=== PATIENT | female | born 1990 | race Hispanic/Latino ===

== ENCOUNTER 2018-05-16 18:05 | Emergency (ER) | payer OTHER ==
[~2018-05-16] VITALS: Ht 157.5 cm; Wt 82.1 kg
--- OUTSIDE RECORDS SUMMARY | 2018-05-16 18:07 | XMS REPORT | Continuity of Care Document ---
Author Author [facility] Interface Address Unknown Phone Unavailable Problems Problem Status Onset Date Classification Date Reported Comments Source RT UPPER PAIN Active 05/11/2018 [facility] ARM PAIN Active 10/21/2017 [facility] Discharge Diagnosis: Blunt head injury 06/22/2017 06/25/2017 [facility] Discharge Diagnosis: Ankle strain 06/22/2017 06/25/2017 [facility] FALL Active 06/22/2017 [facility] SOB Active 12/23/2015 [facility] SYNCOPE Active 12/23/2015 [facility] INDUCTION Active 12/24/2014 [facility] ABDOMINAL PAIN Active 12/22/2014 [facility] CHILDBIRTH Active 12/20/2014 [facility] LOF Active 11/24/2014 [facility] NUMBNESS Active 11/21/2014 [facility] CONTRACTIONS Active 10/13/2014 [facility] Resolved 10/13/2014 Problem 10/24/2017 [facility] Anemia Resolved Problem 10/24/2017 [facility] Anxiety Resolved Problem 10/24/[address] [facility] THREAT LABOR NEC-UNSPEC Active [facility] SYNCOPE AND COLLAPSE Active [facility] Medications Medication Details Route Status Patient Instructions Ordering Provider Order Date Source Acetaminophen 325 MG / Hydrocodone Bitartrate 5 MG Oral Tablet [Maiden 5/325] 1 tab, Route: PO, Drug Form: TAB, Dosing Weight 77.273, kg, ONCE, STAT, Start date: 06/22/17 5:12:00 JUNIOR DATABASE ADMINISTRATOR, Stop date: 06/22/17 5:12:00 JUNIOR DATABASE ADMINISTRATOR Inactive 06/22/2017 [facility] Docusate 100 mg, 1 cap, Route: PO, Drug form: CAP, BID, Dosing Weight 84.545, kg, Start date: 12/24/15 9:00:00 CDT, Duration: 30 day, Stop date: 01/22/16 17:00:00 CDTNotes: (Same as: Colace) (Do Not Crush) Inactive 12/24/2015 [facility] Sodium Chloride 0.154 MEQ/ML Injectable Solution 1,000 mL, 1,000 ml/hr, Infuse Over: 1 hr, Route: IV, 1,000, Drug form: INJ, ONCE, Priority: STAT, Dosing Weight 84.545 kg, Start date: 12/24/15 3:58:00 CDT, Duration: 1 doses or times, Stop date: 12/24/15 3:58:00 CDT Inactive 12/24/2015 [facility] Ondansetron 4 mg, 2 mL, Route: IVP, Drug form: INJ, Q6H, Dosing Weight 84.545, kg, PRN Nausea & Vomiting, Start date: 12/24/15 3:57:00 CDT, Duration: 30 day, Stop date: 01/23/16 3:56:00 CDTNotes: (Same as: John) MEDICATION WASTE Product Size: 4 mg Product Wasted: ___ mg Inactive 12/24/2015 [facility] Acetaminophen 650 mg, 2 tab, Route: PO, Drug form: TAB, Q4H, Dosing Weight 84.545, kg, PRN Pain 1-3/Temp > 100.4 F, Start date: 12/24/15 3:57:00 CDT, Duration: 30 day, Stop date: 01/23/16 3:56:00 CDTNotes: Do not exceed 4 gm/day. (Same as: Tylenol) Inactive 12/24/2015 [facility] Sodium Chloride 0.154 MEQ/ML Injectable Solution 1,000 mL, Rate: 125 ml/hr, Infuse over: 8 hr, Route: IV, Dosing Weight 84.545 kg, Total Volume: 1,000, Start date: 12/24/15 3:57:00 CDT, Duration: 30 day, Stop date: 01/23/16 3:56:00 CDT Inactive 12/24/2015 [facility] Saline Flush 0.9% 10 ml, Route: IVP, Drug Form: INJ, Dosing Weight 84.545, kg, PRN, PRN Line Flush, Start date: 12/24/15 3:57:00 CDT, Duration: 30 day, Stop date: 01/23/16 3:56:00 CDTNotes: Same as: BD Posiflush Sterile Inactive 12/24/2015 [facility] Iohexol 85 mL, Route: IVP, Drug Form: SOLN, Dosing Weight 84.545, kg, ONCALL, STAT, Start date: 12/24/15 2:12:00 CDT, Duration: 1 doses or times, Dose=2.2ml/kg, Max uthb=170tm -- "To be infused by Radiology Staff ONLY" Inactive 12/24/2015 [facility] Potassium Chloride 1.33 MEQ/ML Oral Solution 40 mEq, 30 mL, Route: PO, Drug form: LIQ, ONCE, Dosing Weight 84.545, kg, Priority: STAT, Start date: 12/24/15 1:46:00 CDT, Stop date: 12/24/15 1:46:00 CDTNotes: (Same as: Potassium Chloride) Inactive 12/24/2015 [facility] Sodium Chloride 0.154 MEQ/ML Injectable Solution 1,000 mL, 1,000 ml/hr, Infuse Over: 1 hr, Route: IV, 1,000, Drug form: INJ, ONCE, Priority: STAT, Dosing Weight 84.545 kg, Start date: 12/24/15 0:51:00 CDT, Duration: 1 doses or times, Stop date: 12/24/15 0:51:00 CDT Inactive 12/24/2015 [facility] tramadol hydrochloride 50 MG Oral Tablet 50 mg=1 tab, PO, Q6H, PRN Pain, X 10 day, # 24 tab, 0 Refill(s) Active 12/27/2014 [facility] Docusate Sodium 100 MG Oral Capsule [Colace] 100 mg=1 cap, PO, BID, PRN Constipation, # 20 cap, 0 Refill(s) Active 12/27/2014 [facility] ibuprofen 600 mg oral tablet 600 mg=1 tab, PO, Q6H, PRN Pain, take with food, # 30 tab, 0 Refill(s)Special Instructions: take with food Active 12/27/2014 [facility] Multivitamins oral tablet 1 tab, Route: PO, Drug Form: TAB, Dosing Weight 84.545, kg, Daily, Start date: 12/26/14 9:00:00, Duration: 30 day, Stop date: 01/24/15 9:00:00 No Longer Active 12/26/2014 [facility] M-M-R II 0.5 mL, Route: SUB-Q, Drug Form: PDR/INJ, Dosing Weight 84.545, kg, ONCALL, Give only if patient rubella non-immune, Start date: 12/25/14 15:00:00, Duration: 1 doses or timesNotes: (Same as: M-M-R II) (dazdgnt-iclna-zyvcebo virus vaccine 0.5 ml INJ VL) GIVE PRIOR TO DISCHARGE No Longer Active 12/25/2014 [facility] Acetaminophen 650 mg, 2 tab, Route: PO, Drug form: TAB, Q4H, Dosing Weight 84.545, kg, PRN Headache 1-3, Start date: 12/25/14 14:06:00, Duration: 30 day, Stop date: 01/24/15 14:05:00Notes: Do not exceed 4 gm/day. (Same as: Tylenol) No Longer Active 12/25/2014 [facility] Acetaminophen 325 MG / Hydrocodone Bitartrate 7.5 MG Oral Tablet 1 tab, Route: PO, Drug Form: TAB, Dosing Weight 84.545, kg, Q4H, PRN Pain Score 7-10, Start date: 12/25/14 14:06:00, Duration: 30 day, Stop date: 01/24/15 14:05:00Notes: Same as Maiden 325-7.5mg Do not exceed 4gm/day of acetaminophen. No Longer Active 12/25/2014 [facility] Acetaminophen 325 MG / Hydrocodone Bitartrate 5 MG Oral Tablet 1 tab, Route: PO, Drug Form: TAB, Dosing Weight 84.545, kg, Q4H, PRN Pain Score 4-6, Start date: 12/25/14 14:06:00, Duration: 30 day, Stop date: 01/24/15 14:05:00Notes: (Same as: Maiden 325/5) Do not exceed 4gm/day of acetaminophen. No Longer Active 12/25/2014 [facility] Ibuprofen 800 mg, 1 tab, Route: PO, Drug form: TAB, Q8H, Dosing Weight 84.545, kg, PRN Pain Score 6-10, Start date: 12/25/14 14:06:00, Duration: 30 day, Stop date: 01/24/15 14:05:00Notes: (Same as: Motrin) "Do Not Crush" Take with food. No Longer Active 12/25/2014 [facility] Bisacodyl 10 mg, 1 supp, Route: ND, Drug form: SUPP, PRN, Dosing Weight 84.545, kg, PRN Other -See Comment, Start date: 12/25/14 14:06:00, Duration: 30 day, Stop date: 01/24/15 14:05:00Notes: (Same As: Dulcola x, Bisco-Lax) No Longer Active 12/25/2014 [facility] lanolin topical 1 appl, Route: TOP, PRN, Drug form: OINT, PRN Other -See Comment, Start date: 12/25/14 14:06:00, Duration: 30 day, Stop date: 01/24/15 14:05:00Notes: (Same as:Lanolin) No Longer Active 12/25/2014 [facility] zolpidem 5 mg, 1 tab, Route: PO, Drug form: TAB, Bedtime, Dosing Weight 84.545, kg, PRN Sleep, Start date: 12/25/14 14:06:00, Duration: 30 day, Stop date: 01/24/15 14:05:00Notes: (Same As: Ambien) No Longer Active 12/25/2014 [facility] Docusate 100 mg, 1 cap, Route: PO, Drug form: CAP, BID, Dosing Weight 84.545, kg, PRN Constipation, Start date: 12/25/14 14:06:00, Duration: 30 day, Stop date: 01/24/15 14:05:00Notes: (Same as: Colace) (Do Not Crush) No Longer Active 12/25/2014 [facility] Ondansetron 4 mg, 2 mL, Route: IVP, Drug form: INJ, Q8H, Dosing Weight 84.545, kg, PRN Nausea & Vomiting, Start date: 12/25/14 14:06:00, Duration: 30 day, Stop date: 01/24/15 14:05:00Notes: (Same as: Zofran) MEDICATION WASTE Product Size: 4 mg Product Wasted: ___ mg Inactive 12/25/2014 [facility] Benzocaine 200 MG/ML Topical [place] [Dermoplast] 1 spray, Route: TOP, PRN, Drug form: SPRY, PRN Irritation, Start date: 12/25/14 14:06:00, Duration: 30 day, Stop date: 01/24/15 14:05:00Notes: (Same As: Dermoplast) FOR EXTERNAL USE ONLY No Longer Active 12/25/2014 [facility] Methylergonovine 0.2 mg, 1 mL, Route: IM, Drug form: INJ, PRN, Dosing Weight 84.545, kg, PRN Other -See Comment, Start date: 12/25/14 14:06:00, Duration: 30 day, Stop date: 01/24/15 14:05:00Notes: (Same as:Methergine) No Longer Active 12/25/2014 [facility] Lactated Ringers IV 1,000 mL 1,000 mL, Rate: 100 ml/hr, Infuse over: 10 hr, Route: IV, Dosing Weight 84.545 kg, Total Volume: 1,000, Start date: 12/25/14 14:06:00, Duration: 30 day, Stop date: 01/24/15 14:05:00 No Longer Active 12/25/2014 [facility] Oxytocin 0.06 UNT/ML Injectable Solution 30 unit, 500 mL, Rate: 42 ml/hr, Infuse over: 11.9 hr, Dosing Weight 84.545, kg, Route: IV, Total Volume: 500 mL, Start date: 12/25/14 14:06:00, Duration: 2 doses or times, Stop date: 12/26/14 13:53:00, Replace Every: 11.9 hrNotes: (Same as: OXYTOCIN- D5LR) Inactive 12/25/2014 [facility] Penicillin G 2,500,000 unit, 50 mL, Route: IVPB, Drug form: INJ, ABXQ4H, Dosing Weight 84.545, kg, Start date: 12/24/14 23:00:00 No Longer Active 12/25/2014 [facility] Penicillin G Potassium 7821433 UNT/ML Injectable Solution 5,000,000 unit, Route: IVPB, Drug form: PDR/INJ, ONCALL, Dosing Weight 84.545, kg, Start date: 12/24/14 19:00:00, Duration: 1 doses or timesNotes: (Same as: Pfizerpen) MEDICATION WASTE Product Size: 5,000,000 unit Product Wasted: ___ unit No Longer Active 12/25/2014 [facility] Carboprost 250 microgram, 1 mL, Route: IM, Drug form: INJ, ONCALL, Dosing Weight 84.545, kg, Start date: 12/24/14 19:00:00, Duration: 30 day, Stop date: 01/23/15 18:59:00Notes: (Same As: Hemabate) No Longer Active 12/25/2014 [facility] Citric Acid / sodium citrate 30 mL, Route: PO, Drug Form: SOLN, Dosing Weight 84.545, kg, ONCALL, Start date: 12/24/14 19:00:00, Duration: 30 day, Stop date: 01/23/15 18:59:00Notes: (Same As: Bicitra, Cytra-2) Sodium citrate-citric acid (500-334 mg/5 mL): 1 mL contains sodium 1 mEq/mL and bicarbonate 1 mEq/mL No Longer Active 12/25/2014 [facility] Misoprostol 1,000 microgram, 5 tab, Route: ND, Drug form: TAB, ONCALL, Dosing Weight 84.545, kg, Start date: 12/24/14 19:00:00, Duration: 1 doses or timesNotes: (Same as:Cytotec) Take with food No Longer Active 12/25/2014 [facility] Methylergonovine 0.2 mg, 1 mL, Route: IM, Drug form: INJ, ONCALL, Dosing Weight 84.545, kg, Start date: 12/24/14 19:00:00, Duration: 30 day, Stop date: 01/23/15 18:59:00Notes: (Same as:Methergine) No Longer Active 12/25/2014 [facility] Famotidine 20 mg, 2 mL, Route: IVP, Drug form: INJ, ONCALL, Dosing Weight 84.545, kg, Start date: 12/24/14 19:00:00, Duration: 30 day, Stop date: 01/23/15 18:59:00Notes: (Same as: Pepcid) Can be dilute in 5-10cc NS IVP: Slow IV push over at least 2 minutes. No Longer Active 12/25/2014 [facility] Terbutaline 0.25 mg, 0.25 mL, Route: SUB-Q, Drug form: INJ, PRN, Dosing Weight 84.545, kg, PRN Other -See Comment, Start date: 12/24/14 18:55:00, Duration: 1 doses or times, Stop date: Limited # of timesNotes: DO NOT USE IN [place] AREA (Same As: Brethine) No Longer Active 12/24/2014 [facility] lidocaine 1% 20 mL, Route: PERCUT, Drug Form: INJ, Dosing Weight 84.545, kg, PRN, PRN Other -See Comment, Start date: 12/24/14 18:55:00, Duration: 1 doses or times, Stop date: Limited # of timesNotes: (Same as: X ylocaine) No Longer Active 12/24/2014 [facility] Oxytocin 0.06 UNT/ML Injectable Solution 30 unit, 500 mL, Rate: Titrate, Dosing Weight 84.545, kg, Route: IV, Total Volume: 500 mL, Start date: 12/24/14 18:55:00, Duration: 2 day, Stop date: 12/26/14 18:54:00, Replace Every: 24 hrNotes: (Same as: OXYTOCIN-D5LR) No Longer Active 12/24/2014 [facility] lidocaine 1% injectable solution 0.25 mL, Route: INTRADERM, Drug Form: INJ, Dosing Weight 84.545, kg, PRN, PRN Other -See Comment, Start date: 12/24/14 18:55:00, Duration: 30 day, Stop date: 01/23/15 18:54:00Notes: Preservative free. (Same as: Xylocaine MPF) No Longer Active 12/24/2014 [facility] Calcium Chloride 0.0014 MEQ/ML / Potassium Chloride 0.004 MEQ/ML / Sodium Chloride 0.103 MEQ/ML / Sodium Lactate 0.028 MEQ/ML Injectable Solution 1,000 mL, 1,000 ml/hr, Infuse Over: 1 hr, Route: IV, 1,000, Drug form: INJ, ONCE, Dosing Weight 84.545 kg, Start date: 12/24/14 18:55:00, Stop date: 12/24/14 18:55:00, Bolus for regional anesthesia per unit protocol No Longer Active 12/24/2014 [facility] Ondansetron 4 mg, 2 mL, Route: IVP, Drug form: INJ, Q8H, Dosing Weight 84.545, kg, PRN Nausea & Vomiting, Start date: 12/24/14 18:55:00, Duration: 30 day, Stop date: 01/23/15 18:54:00Notes: (Same as: John) MEDICATION WASTE Product Size: 4 mg Product Wasted: ___ mg No Longer Active 12/24/2014 [facility] Butorphanol 2 mg, 1 mL, Route: IVP, Drug form: INJ, Q2H, Dosing Weight 84.545, kg, PRN Pain Score 6-10, Start date: 12/24/14 18:55:00, Duration: 30 day, Stop date: 01/23/15 18:54:00Notes: (Same As: Karin) ME DICATION WASTE Product Size: 2 mg Product Wasted: ___ mg No Longer Active 12/24/2014 [facility] Lactated Ringers IV 1,000 mL 1,000 mL, Rate: 125 ml/hr, Infuse over: 8 hr, Route: IV, Dosing Weight 84.545 kg, Total Volume: 1,000, Start date: 12/24/14 18:55:00, Duration: 30 day, Stop date: 01/23/15 18:54:00 No Longer Active 12/24/2014 [facility] ferrous sulfate 325 MG Oral Tablet 325 mg=1 tab, PO, TID, 0 Refill(s) Active 11/25/2014 [facility] Esomeprazole 40 MG Enteric Coated Capsule [Nexium] 40 mg=1 cap, PO, Daily, 0 Refill(s) Active 11/25/2014 [facility] 1 oral capsule 1 cap, PO, Daily, 0 Refill(s) Active 11/25/2014 [facility] Iron-150 oral tablet 1 tab, PO, Daily, 0 Refill(s) Inactive 11/25/2014 [facility] multivitamin, 1 tab, Route: PO, Drug Form: TAB, Dosing Weight 79.545, kg, Daily, Start date: 11/25/14 9:00:00, Duration: 30 day, Stop date: 12/24/14 9:00:00 Inactive 11/25/2014 [facility] Famotidine 20 MG Oral Tablet [Pepcid] 20 mg, 1 tab, Route: PO, Drug form: TAB, Q12H, Dosing Weight 79.545, kg, Start date: 11/25/14 9:00:00, Duration: 30 day, Stop date: 12/24/14 21:00:00Notes: (Same as: Pepcid) Inactive 11/25/2014 [facility] Ofirmev 1,000 mg, 100 mL, Route: IV, Drug form: INJ, Q6H, Dosing Weight 79.545, kg, PRN Pain Score 1-3, for > or=50 kg, Start date: 11/25/14 0:38:00, Duration: 30 day, Stop date: 12/25/14 0:37:00Notes: Infuse o chilango 15 minutes Do not exceed 4gm/day of acetaminophen MEDICATION WASTE Product Size: 1000 mg Product Wasted: ___ mg Inactive 11/25/2014 [facility] Ambien 5 mg, 1 tab, Route: PO, Drug form: TAB, Bedtime, Dosing Weight 79.545, kg, PRN Insomnia, Start date: 11/25/14 0:37:00, Duration: 30 day, Stop date: 12/25/14 0:36:00Notes: (Same As: Ambien) Inactive 11/25/2014 [facility] Ofirmev 1,000 mg, 100 mL, Route: IV, Drug form: INJ, ONCE, Dosing Weight 79.545, kg, PRN Pain Score 1-3, for > or=50 kg, Start date: 11/24/14 21:20:00Notes: Infuse over 15 minutes Do not exceed 4gm/day of aceta minophen MEDICATION WASTE Product Size: 1000 mg Product Wasted: ___ mg Inactive 11/25/2014 [facility] Calcium Chloride 0.0014 MEQ/ML / Potassium Chloride 0.004 MEQ/ML / Sodium Chloride 0.103 MEQ/ML / Sodium Lactate 0.028 MEQ/ML Injectable Solution 1,000 mL, Rate: 125 ml/hr, Infuse over: 8 hr, Route: IV, Dosing Weight 79.545 kg, Total Volume: 1,000, Start date: 11/24/14 21:18:00, Duration: 30 day, Stop date: 12/24/14 21:17:00 No Longer Active 11/25/2014 [facility] Saline Flush 0.9% 10 ml, Route: IVP, Drug Form: INJ, Dosing Weight 79.545, kg, PRN, PRN Line Flush, Start date: 11/24/14 21:16:00, Duration: 30 day, Stop date: 12/24/14 21:15:00Notes: (Same as: BD Posiflush) No Longer Active 11/25/2014 [facility] Allergies, Adverse Reactions, Alerts Substance Category Reaction Severity Reaction type Status Date Reported Comments Source Immunizations Immunization Date Given Site Status Last Updated Comments Source diphtheria/pertussis, acel/tetanus adult 12/27/2014 Left deltoid completed [facility] Results Order Name Results Value Reference Range Date Interpretation Comments Source Ext Upper Venous Doppler Unilat US Ext Upper Venous Doppler Unilat US Addendum: The findings were discussed with ER nurse Savage on 05/11/2018 at 1520 hours.. PROCEDURE: Unilateral right upper extremity venous ultrasound. INDICATION: Right arm pain, erythema and edema. COMPARISON: None. TECHNIQUE: Sonographic evaluation of the upper extremity veins was performed using high resolution B-mode imaging, pulse and color Doppler imaging. FINDINGS: The internal jugular, subclavian, axillary, brachial, radial and ulnar veins are patent with normal compressibility and Doppler flow. Echogenic thrombus is identified within the right arm basilic vein without compressibility or significant Doppler flow. Right arm cephalic vein demonstrates normal compressibility and Doppler flow. IMPRESSION: 1. No deep venous thrombosis. 2. Superficial venous thrombus within the right arm basilic vein. SL: [id number] 05/11/2018 - - Read by: Rey Gill MD Dictated Date/time: 05/11/18 16:37 Electronically Signed by: Rey Gill MD 05/11/18 16:38 FINAL REPORT - - Read by: Rey Gill MD Dictated Date/time: 05/11/18 15:08 Electronically Signed by: Rey Gill MD 05/11/18 15:12 FINAL REPORT [facility] Brain wo contrast CT Brain wo contrast CT Patient Name: FIONA MORE : 1990; Age: 27 years Female MR: [id number] Study: Brain wo contrast CT 06/22/2017 5:11 AM JUNIOR DATABASE ADMINISTRATOR Clinical Indication: CT dose DLP 858.84 mGy-cm - blunt trauma. COMPARISON: None TECHNIQUE: CT images were obtained from the foramen magnum to the vertex without the use of intravenous contrast on a multidetector CT. Coronal and sagittal reconstructions were obtained. FINDINGS: BRAIN PARENCHYMA: There are normal courtney-white interfaces, sulci and gyri. There is no mass effect or midline shift. There is no extra-axial fluid collection, intraventricular or intraparenchymal hemorrhage. The sella and pineal regions are normal. The skull base, cerebellum and brainstem are normal. VENTRICLES: The ventricles are normal in size and configuration. The basilar cisterns are normal. ORBITS, MASTOIDS AND PARANASAL SINUSES: The visualized orbits are normal. The paranasal sinuses are normal. The mastoid air cells are clear. SKULL: There are no osseous abnormalities. If there is further concern for intracranial pathology or acute stroke, MRI of the brain may be performed for complete assessment. IMPRESSION: Normal noncontrast head CT. No mass, hemorrhage or subacute stroke. SL: [id number] 06/22/2017 - - Read by: Gil Calderón MD Dictated Date/time: 06/22/17 07:01 Electronically Signed by: Gil Calderón MD 06/22/17 07:03 FINAL REPORT [facility] Ankle 2 views DX Ankle 2 views DX Right ankle, 2 views dated 06/22/2017. HISTORY: Right ankle pain. AP and lateral views of the right ankle demonstrate no evidence of acute fracture of the distal right tibia or fibula. The talus appears intact and normally located. The ankle mortise appears intact. IMPRESSION: 1. No acute bony abnormalities of the right ankle are detected. SL: [id number] 06/22/2017 - - Read by: Tony Galvez MD Dictated Date/time: 06/22/17 06:28 Electronically Signed by: Tony Galvez MD 06/22/17 06:29 FINAL REPORT [facility] CARDIAC ENZYMES Troponin-I null 0.00 - 0.40 12/24/2015 [facility] ELECTROLYTES AGAP 10.4 meq/L 10.0 - 20.0 12/24/2015 [facility] ELECTROLYTES eGFR 87 mL/min/1.73m2 12/24/2015 Result Comment: The eGFR is calculated using the CKD-EPI formula. In most young, healthy individuals the eGFR will be >90 mL/min/1.73m2. The eGFR declines with age. An eGFR of 60-89 may be normal in some populations, particularly the elderly, for whom the CKD-EPI formula has not been extensively validated. Use of the eGFR is not recommended in the following populations: Individuals with unstable creatinine concentrations, including patients and those with serious co-morbid conditions. Patients with extremes in muscle mass or diet. The data above are obtained from the National Kidney Disease Education Program (NKDEP) which additionally recommends that when the eGFR is used in patients with extremes of body mass index for purposes of drug dosing, the eGFR should be multiplied by the estimated BMI. [facility] ELECTROLYTES BUN 14 mg/dL 7 - 22 12/24/2015 [facility] ELECTROLYTES Sodium Lvl 141 meq/L 135 - 145 12/24/2015 [facility] ELECTROLYTES Glucose Lvl 106 mg/dL 70 - 99 12/24/2015 [facility] ELECTROLYTES Creatinine Lvl 0.92 mg/dL 0.50 - 1.40 12/24/2015 [facility] ELECTROLYTES Calcium Lvl 8.8 mg/dL 8.5 - 10.5 12/24/2015 [facility] ELECTROLYTES Potassium Lvl 3.4 meq/L 3.5 - 5.1 12/24/2015 [facility] ELECTROLYTES CO2 26 meq/L 24 - 32 12/24/2015 [facility] ELECTROLYTES Chloride Lvl 108 meq/L 95 - 109 12/24/2015 [facility] HEMATOLOGY PTT 30.3 s 22.9 - 35.8 12/24/2015 [facility] HEMATOLOGY PT 13.2 s 12.0 - 14.7 12/24/2015 [facility] HEMATOLOGY INR 0.97 0.85 - 1.17 12/24/2015 [facility] HEMATOLOGY WBC 5.3 K/CMM 3.7 - 10.4 12/24/2015 [facility] HEMATOLOGY Hgb 10.0 g/dL 12.0 - 16.0 12/24/2015 [facility] HEMATOLOGY Hct 32.1 % 36.0 - 48.0 12/24/2015 [facility] [facility] HEMATOLOGY MCV 71.9 fL 80.0 - 98.0 12/24/2015 [facility] HEMATOLOGY RBC 4.46 M/CMM 4.20 - 5.40 12/24/2015 [facility] HEMATOLOGY MCH 22.5 pg 27.0 - 31.0 12/24/2015 [facility] HEMATOLOGY MCHC 31.3 g/dL 32.0 - 36.0 12/24/2015 [facility] HEMATOLOGY RDW 21.4 % 11.5 - 14.5 12/24/2015 [facility] HEMATOLOGY Platelet 315 K/CMM 133 - 450 12/24/2015 [facility] HEMATOLOGY MPV 8.6 fL 7.4 - 10.4 12/24/2015 [facility] HEMATOLOGY Microcyte 2+ *ABN* (12/24/15 12:45 AM) None Seen 12/24/2015 [facility] HEMATOLOGY Basophils # 0.1 K/CMM 0.0 - 0.2 12/24/2015 [facility] HEMATOLOGY Eosinophils # 0.3 K/CMM 0.0 - 0.5 12/24/2015 [facility] HEMATOLOGY Anisocyte 1+ *ABN* (12/24/15 12:45 AM) None Seen 12/24/2015 [facility] HEMATOLOGY Lymphocytes # 1.8 K/CMM 1.0 - 5.5 12/24/2015 [facility] HEMATOLOGY Monocytes # 0.5 K/CMM 0.0 - 0.8 12/24/2015 [facility] HEMATOLOGY Segs 50.4 % 45.0 - 75.0 12/24/2015 [facility] HEMATOLOGY Lymphocytes 34.7 % 20.0 - 40.0 12/24/2015 [facility] HEMATOLOGY Basophils 1.3 % 0.0 - 1.0 12/24/2015 [facility] HEMATOLOGY Segs-Bands # 2.7 K/CMM 1.5 - 8.1 12/24/2015 [facility] HEMATOLOGY Monocytes 8.7 % 2.0 - 12.0 12/24/2015 [facility] HEMATOLOGY Eosinophils 4.9 % 0.0 - 4.0 12/24/2015 [facility] IMMUNOLOGY CDC HIV 4th GEN Negative (12/24/15 12:45 AM) Negative 12/24/2015 [facility] Chest Pulmonary Embolism CTA Chest Pulmonary Embolism CTA EXAM: CTA CHEST WITH CONTRAST DATE: 12/24/2015 1:44 AM CDT INDICATION: Chest pain COMPARISON: None. TECHNIQUE: Volumetric CT acquisition of the chest, during pulmonary arterial phase, after intravenous contrast. Axial, sagittal, coronal, and oblique MIP reconstructions are created at the acquisition workstation. IV Contrast: 85 mL of Omnipaque 350 DLP: 657 mGy-cm FINDINGS: Heart and Mediastinum: Cardiothoracic ratio measures 12.4 x 24 cm. Measurements and appearance of the thoracic aorta are normal. At the same level where the ascending aorta measures 2.8 cm the pulmonary trunk measures 2.7 cm. There is no pulmonary embolus. Pleura: No pleural effusion or pneumothorax seen. Lymph Nodes: There is no significant hilar, mediastinal, axillary or internal mammary lymphadenopathy. Lungs: Mosaic attenuation with patchy groundglass haziness seen in the dependent lungs bilaterally, likely related to subsegmental atelectasis, given the dependent distribution. This is less likely due to small airway or small vessel disease. Trachea: Unremarkable Bones and soft tissues: No acute abnormality. IMPRESSION: 1. No acute pulmonary embolus. 2. Mosaic attenuation with patchy groundglass haziness seen in the dependent lungs bilaterally, likely related to subsegmental atelectasis, and unlikely due to small airway or small vessel disease. 12/24/2015 - - Read by: Lj Salazar Dictated Date/time: 12/24/15 02:49 Electronically Signed by: Lj Salazar 12/24/15 02:58 FINAL REPORT [facility] Chest 1view DX Chest 1view DX EXAM: XR CHEST 1 VIEW DATE: 12/24/2015 12:23 AM CDT INDICATION: Dyspnea COMPARISON: None TECHNIQUE: AP chest FINDINGS: No focal consolidation or pleural effusion or pneumothorax is identified. The heart size is normal for technique. No acute bony abnormality is identified. IMPRESSION: No acute cardiopulmonary abnormality. 12/24/2015 - - This report was dictated by a [employer] W[employer] Grower/Fellow. I have personally reviewed the images as well as the Resident's interpretation and agree with the findings. Read by: Adrianna Brink MD Resident: Adrianna Brink MD Dictated Date/time: 12/24/15 00:38 Electronically Signed by: Lj Salazar 12/24/15 01:26 FINAL REPORT [facility] HEMATOLOGY Hgb 10.9 g/dL 12.0 - 16.0 12/26/2014 [facility] HEMATOLOGY Hct 34.1 % 36.0 - 48.0 12/26/2014 [facility] BLOOD BANK RESULTS RBC product Product available (12/25/14 9:30 AM) 12/25/2014 [facility] BLOOD BANK RESULTS Antibody Scrn Negative (12/24/14 8:13 PM) 12/25/2014 [facility] BLOOD BANK RESULTS ABO/Rh O POS 12/25/2014 [facility] CHEM PANEL eGFR 122 mL/min/1.73m2 12/25/2014 1Result Comment: The eGFR is calculated using the CKD-EPI formula. In most young, healthy individuals the eGFR will be >90 mL/min/1.73m2. The eGFR declines with age. An eGFR of 60-89 may be normal in some populations, particularly the elderly, for whom the CKD-EPI formula has not been extensively validated. Use of the eGFR is not recommended in the following populations: Individuals with unstable creatinine concentrations, including patients and those with serious co-morbid conditions. Patients with extremes in muscle mass or diet. The data above are obtained from the National Kidney Disease Education Program (NKDEP) which additionally recommends that when the eGFR is used in patients with extremes of body mass index for purposes of drug dosing, the eGFR should be multiplied by the estimated BMI. [facility] CHEM PANEL Creatinine Lvl 0.7 mg/dL 0.5 - 1.4 12/25/2014 [facility] CHEM PANEL ALT 14 unit/L 0 - 65 12/25/2014 [facility] CHEM PANEL Uric Acid 5.4 mg/dL 2.5 - 7.0 12/25/2014 [facility] CHEM PANEL LDH 207 unit/L 98 - 192 12/25/2014 [facility] CHEM PANEL AST 17 unit/L 0 - 37 12/25/2014 [facility] HEMATOLOGY Segs-Bands # 5.0 K/CMM 1.5 - 8.1 12/25/2014 [facility] HEMATOLOGY Lymphocytes # 1.2 K/CMM 1.0 - 5.5 12/25/2014 [facility] HEMATOLOGY Monocytes # 0.6 K/CMM 0.0 - 0.8 12/25/2014 [facility] HEMATOLOGY Microcyte 1+ *ABN* (12/24/14 8:13 PM) None Seen 12/25/2014 [facility] HEMATOLOGY Monocytes 8.4 % 2.0 - 12.0 12/25/2014 [facility] HEMATOLOGY Basophils 0.4 % 0.0 - 1.0 12/25/2014 [facility] HEMATOLOGY Eosinophils 0.6 % 0.0 - 4.0 12/25/2014 [facility] HEMATOLOGY Segs 72.8 % 45.0 - 75.0 12/25/2014 [facility] HEMATOLOGY Lymphocytes 17.8 % 20.0 - 40.0 12/25/2014 [facility] HEMATOLOGY RBC 3.79 M/CMM 4.20 - 5.40 12/25/2014 [facility] HEMATOLOGY WBC 6.9 K/CMM 3.7 - 10.4 12/25/2014 [facility] HEMATOLOGY Hgb 9.1 g/dL 12.0 - 16.0 12/25/2014 [facility] HEMATOLOGY MCV 74.8 fL 80.0 - 98.0 12/25/2014 [facility] HEMATOLOGY Hct 28.4 % 36.0 - 48.0 12/25/2014 [facility] HEMATOLOGY MCHC 32.2 g/dL 32.0 - 36.0 12/25/2014 [facility] HEMATOLOGY MCH 24.1 pg 27.0 - 31.0 12/25/2014 [facility] HEMATOLOGY Platelet 284 K/CMM 133 - 450 12/25/2014 [facility] HEMATOLOGY RDW 17.9 % 11.5 - 14.5 12/25/2014 [facility] HEMATOLOGY MPV 8.5 fL 7.4 - 10.4 12/25/2014 [facility] IMMUNOLOGY Treponemal Scr Non Reactive *NA* (12/24/14 8:13 PM) Non Reactive 12/25/2014 [facility] IMMUNOLOGY Hep Bs Ag Negative *NA* (12/24/14 8:13 PM) Negative 12/25/2014 [facility] URINE CHEM U Protein 17.2 mg/dL 12/25/2014 3Interpretive Data: No established reference ranges. [facility] URINE CHEM U Prot/Creat 0.1 12/25/2014 [facility] URINE CHEM U Creatinine 205.2 mg/dL 12/25/2014 2Interpretive Data: No established reference ranges. [facility] ELECTROLYTES AGAP 15.4 meq/L 10.0 - 20.0 11/25/2014 [facility] ELECTROLYTES eGFR 128 mL/min/1.73m2 11/25/2014 1Result Comment: The eGFR is calculated using the CKD-EPI formula. In most young, healthy individuals the eGFR will be >90 mL/min/1.73m2. The eGFR declines with age. An eGFR of 60-89 may be normal in some populations, particularly the elderly, for whom the CKD-EPI formula has not been extensively validated. Use of the eGFR is not recommended in the following populations: Individuals with unstable creatinine concentrations, including patients and those with serious co-morbid conditions. Patients with extremes in muscle mass or diet. The data above are obtained from the National Kidney Disease Education Program (NKDEP) which additionally recommends that when the eGFR is used in patients with extremes of body mass index for purposes of drug dosing, the eGFR should be multiplied by the estimated BMI. [facility] ELECTROLYTES Glucose Lvl 88 mg/dL 70 - 99 11/25/2014 2Interpretive Data: Adult reference range values reflect the clinical guidelines of the [place] [employer]. [facility] ELECTROLYTES Creatinine Lvl 0.6 mg/dL 0.5 - 1.4 11/25/2014 [facility] ELECTROLYTES Chloride Lvl 106 meq/L 95 - 109 11/25/2014 [facility] ELECTROLYTES BUN 9 mg/dL 7 - 22 11/25/2014 [facility] ELECTROLYTES CO2 22 meq/L 24 - 32 11/25/2014 [facility] ELECTROLYTES Sodium Lvl 140 meq/L 135 - 145 11/25/2014 [facility] ELECTROLYTES Potassium Lvl 3.4 meq/L 3.5 - 5.1 11/25/2014 [facility] ELECTROLYTES Calcium Lvl 8.4 mg/dL 8.5 - 10.5 11/25/2014 [facility] HEMATOLOGY Monocytes 10.0 % 2.0 - 12.0 11/25/2014 [facility] HEMATOLOGY Segs 70.4 % 45.0 - 75.0 11/25/2014 [facility] HEMATOLOGY Lymphocytes 18.6 % 20.0 - 40.0 11/25/2014 [facility] HEMATOLOGY Eosinophils # 0.1 K/CMM 0.0 - 0.5 11/25/2014 [facility] HEMATOLOGY Monocytes # 1.1 K/CMM 0.0 - 0.8 11/25/2014 [facility] HEMATOLOGY Basophils 0.1 % 0.0 - 1.0 11/25/2014 [facility] HEMATOLOGY Lymphocytes # 2.0 K/CMM 1.0 - 5.5 11/25/2014 [facility] HEMATOLOGY Segs-Bands # 7.5 K/CMM 1.5 - 8.1 11/25/2014 [facility] HEMATOLOGY Microcyte 1+ *ABN* (11/24/14 10:28 PM) None Seen 11/25/2014 [facility] HEMATOLOGY Eosinophils 0.9 % 0.0 - 4.0 11/25/2014 [facility] HEMATOLOGY WBC 10.7 K/CMM 3.7 - 10.4 11/25/2014 [facility] HEMATOLOGY MCHC 32.0 g/dL 32.0 - 36.0 11/25/2014 [facility] HEMATOLOGY Platelet 314 K/CMM 133 - 450 11/25/2014 [facility] HEMATOLOGY RDW 17.6 % 11.5 - 14.5 11/25/2014 [facility] HEMATOLOGY MPV 8.1 fL 7.4 - 10.4 11/25/2014 [facility] HEMATOLOGY Hgb 9.3 g/dL 12.0 - 16.0 11/25/2014 [facility] HEMATOLOGY RBC 3.68 M/CMM 4.20 - 5.40 11/25/2014 [facility] HEMATOLOGY MCV 78.8 fL 80.0 - 98.0 11/25/2014 [facility] HEMATOLOGY Hct 29.0 % 36.0 - 48.0 11/25/2014 [facility] HEMATOLOGY MCH 25.2 pg 27.0 - 31.0 11/25/2014 [facility] URINE AND STOOL UA Bili Negative *NA* (11/24/14 10:28 PM) Negative 11/25/2014 [facility] URINE AND STOOL UA Ketones Negative mg/dL Negative mg/dL 11/25/2014 [facility] URINE AND STOOL UA Protein 20 mg/dL Negative mg/dL 11/25/2014 [facility] URINE AND STOOL UA Glucose Negative mg/dL Negative mg/dL 11/25/2014 [facility] URINE AND STOOL UA Blood Negative (11/24/14 10:28 PM) Negative 11/25/2014 [facility] URINE AND STOOL UA Urobilinogen 2.0 mg/dL 0.1 - 1.0 11/25/2014 [facility] URINE AND STOOL UA WBC 3 /HPF 0 - 5 11/25/2014 [facility] URINE AND STOOL UA Sq Epi Few /LPF Few /LPF 11/25/2014 [facility] URINE AND STOOL UA Nitrite Negative (11/24/14 10:28 PM) Negative 11/25/2014 [facility] URINE AND STOOL UA Leuk Est Negative (11/24/14 10:28 PM) Negative 11/25/2014 [facility] URINE AND STOOL UA pH 6.0 5.0 - 8.0 11/25/2014 [facility] URINE AND STOOL UA Turbidity Clear (11/24/14 10:28 PM) Clear 11/25/2014 [facility] URINE AND STOOL UA Color Yellow *NA* (11/24/14 10:28 PM) Yellow 11/25/2014 [facility] URINE AND STOOL UA Spec Grav 1.019 <=1.030 11/25/2014 [facility] URINE AND STOOL UA Trans Epi 9 /LPF <=0 /LPF 11/25/2014 [facility] URINE AND STOOL UA Mucus Few /LPF None Seen /LPF 11/25/2014 [facility] Vital Signs Vital Sign Value Date Comments Source Respitory Rate 18 10/21/2017 [facility] Height 157.48 cm 10/21/2017 [facility] Heart Rate 81 10/21/2017 [facility] Systolic (mm Hg) 117 10/21/2017 [facility] Diastolic (mm Hg) 73 10/21/2017 [facility] Temperature Oral (F) 98.2 F 10/21/2017 [facility] Weight 77.273 10/21/2017 [facility] BMI Calculated 31.16 10/21/2017 [facility] Heart Rate 60 06/22/2017 [facility] Respitory Rate 14 06/22/2017 [facility] Systolic (mm Hg) 112 06/22/2017 [facility] Diastolic (mm Hg) 71 06/22/2017 [facility] Temperature Oral (F) 97.8 F 06/22/2017 [facility] Heart Rate 68 06/22/2017 [facility] Systolic (mm Hg) 120 06/22/2017 [facility] Diastolic (mm Hg) 68 06/22/2017 [facility] Respitory Rate 16 06/22/2017 [facility] Weight 77.273 06/22/2017 [facility] BMI Calculated 31.16 06/22/2017 [facility] Temperature Oral (F) 97.7 F 06/22/2017 [facility] Heart Rate 77 06/22/2017 [facility] Respitory Rate 18 06/22/2017 [facility] Systolic (mm Hg) 120 06/22/2017 [facility] Diastolic (mm Hg) 77 06/22/2017 [facility] Height 157.48 cm 06/22/2017 [facility] Temperature Oral (F) 96.6 F 12/24/2015 [facility] Systolic (mm Hg) 112 12/24/2015 [facility] Diastolic (mm Hg) 58 12/24/2015 [facility] Heart Rate 57 12/24/2015 [facility] Respitory Rate 17 12/24/2015 [facility] Systolic (mm Hg) 121 12/24/2015 [facility] Diastolic (mm Hg) 74 12/24/2015 [facility] Respitory Rate 16 12/24/2015 [facility] Temperature Oral (F) 96.5 F 12/24/2015 [facility] Respitory Rate 14 12/24/2015 [facility] Systolic (mm Hg) 121 12/24/2015 [facility] Diastolic (mm Hg) 60 12/24/2015 [facility] Temperature Oral (F) 96.5 F 12/24/2015 [facility] Heart Rate 65 12/24/2015 [facility] Heart Rate 62 12/24/2015 [facility] BMI Calculated 33.02 12/24/2015 [facility] Height 160.02 cm 12/24/2015 [facility] Weight 84.545 12/24/2015 [facility] Heart Rate 69 12/27/2014 [facility] Temperature Oral (F) 97.8 F 12/27/2014 [facility] Systolic (mm Hg) 117 12/27/2014 [facility] Diastolic (mm Hg) 72 12/27/2014 [facility] Respitory Rate 17 12/27/2014 [facility] Systolic (mm Hg) 105 12/26/2014 [facility] Diastolic (mm Hg) 62 12/26/2014 [facility] Respitory Rate 18 12/26/2014 [facility] Heart Rate 92 12/26/2014 [facility] Temperature Oral (F) 98.3 F 12/26/2014 [facility] Systolic (mm Hg) 114 12/26/2014 [facility] Diastolic (mm Hg) 71 12/26/2014 [facility] Respitory Rate 18 12/26/2014 [facility] Heart Rate 84 12/26/2014 [facility] Temperature Oral (F) 97.9 F 12/26/2014 [facility] Weight 84.545 12/24/2014 [facility] BMI Calculated 33.02 12/24/2014 [facility] Height 160.02 cm 12/24/2014 [facility] Weight 84.545 12/23/2014 [facility] BMI Calculated 33.02 12/23/2014 [facility] Height 160.02 cm 12/23/2014 [facility] Heart Rate 131 12/23/2014 [facility] Respitory Rate 18 12/23/2014 [facility] Systolic (mm Hg) 108 12/23/2014 [facility] Diastolic (mm Hg) 72 12/23/2014 [facility] Systolic (mm Hg) 121 11/25/2014 [facility] Diastolic (mm Hg) 61 11/25/2014 [facility] Respitory Rate 18 11/25/2014 [facility] Temperature Oral (F) 98 F 11/25/2014 [facility] Heart Rate 93 11/25/2014 [facility] Respitory Rate 18 11/25/2014 [facility] Systolic (mm Hg) 105 11/25/2014 [facility] Diastolic (mm Hg) 51 11/25/2014 [facility] Temperature Oral (F) 97.8 F 11/25/2014 [facility] Respitory Rate 18 11/25/2014 [facility] Systolic (mm Hg) 107 11/25/2014 [facility] Diastolic (mm Hg) 57 11/25/2014 [facility] Temperature Oral (F) 98.1 F 11/25/2014 [facility] Height 157.48 cm 11/25/2014 [facility] BMI Calculated 32.07 11/25/2014 [facility] Weight 79.545 11/25/2014 [facility] Heart Rate 96 11/25/2014 [facility] Systolic (mm Hg) 117 10/13/2014 [facility] Diastolic (mm Hg) 67 10/13/2014 [facility] Height 157.48 cm 10/13/2014 [facility] Weight 78.182 10/13/2014 [facility] BMI Calculated 31.53 10/13/2014 [facility] Height 157.48 cm 10/13/2014 [facility] Weight 78.182 10/13/2014 [facility] BMI Calculated 31.53 10/13/2014 [facility] Encounters Location Location Details Encounter Type Encounter Number Reason For Visit Attending Provider ADM Date DC Date Status Source [facility] OBS Observation Patient [id number] Denisha Vidal 10/13/2014 10/13/2014 [facility] OBS Observation Patient [id number] Melanie Valadez 11/25/2014 11/25/2014 [facility] OBS Observation Patient [id number] Melanie Joyceda 12/23/2014 12/23/2014 [facility] Inpatient [id number] Melanie Valadez 12/24/2014 12/27/2014 [facility] OBS Observation Patient [id number] Yaya Saavedra 12/24/2015 12/24/2015 [facility] Emergency [id number] Lidia Cash 06/22/2017 06/22/2017 [facility] Emergency [id number] Drew Fernandes 10/21/2017 10/22/2017 [facility] Procedures Procedure Code Date Perfomer Comments Source
--- OUTSIDE RECORDS SUMMARY | 2018-05-16 18:07 | XMS REPORT | Summary of Care ---
Author Organization Unknown Address Unknown Phone Unavailable Encounter ENEDINA Hannah(JEAN CLAUDE) [id number] Date(s): 10/13/14 - 10/13/14 [facility] [address] Professional Services provided by [facility] [employer] [facility] [employer] [place] [address]- Discharge Disposition: Home Physician Attending: Denisha Vidal MD Physician Admitting: Denisha Vidal MD Vital Signs Most recent to 1 2 oldest [Reference Range]: Height 157.48 cm 157.48 cm (10/13/14 1:21 PM) (10/13/14 1:08 PM) Blood Pressure 117/67 mmHg [90-140/60-90 mmHg] (10/13/14 1:23 PM) Weight 78.182 kg 78.182 kg (10/13/14 1:21 PM) (10/13/14 1:08 PM) Body Mass Index 31.53 m2 31.53 m2 (10/13/14 1:21 PM) (10/13/14 1:08 PM) Problem List Condition Effective Dates Status Health Status Informant Anxiety(Confirmed) Resolved (Confirmed) 10/13/14 Active (Confirmed) 03/31/09 - 12/22/09 Resolved (Confirmed) 05/01/08 - 01/22/09 Resolved Allergies, Adverse Reactions, Alerts Substance Reaction Severity Status NKDA Active Medications No Known Medications Results No data available for this section Immunizations No data available for this section Procedures No data available for this section Social History Social History Type Response Smoking Status Never smoker; Exposure to Tobacco Smoke None; Cigarette Smoking Last 365 Days No; Reg Smoking Cessation Counseling No Assessment and Plan Extracted from: Title: OB H&P triage Author: Galdino Carrion MD Date: 10/13/14 Impression and Plan A/P: 24 yo, at 28wk3d by LMP c/w 22 wk sono who present to triage c/o painful ctx for 2 wks * Rule out pre-term labor: no ctx on toco, cervix cl/th/hi, will D/C home with pre-term labor precaution. * Rule out SROM: No pooling or valsalva noted. neg nitrazine. sono: MVP 5.2cm. * PNL: wnl per pt. ARNULFO neg, Wet mount neg today. * Br/epidural/BCM: none. * Dispo: D/C home with pre-term labor precaution. * Discussed with Dr. Nolasco. Galdino Carrion MD, PhD, PGY1
--- OUTSIDE RECORDS SUMMARY | 2018-05-16 18:08 | XMS REPORT | Summary of Care ---
Author Organization Unknown Address Unknown Phone Unavailable Encounter HQ Brielle(JEAN CLAUDE) [id number] Date(s): 11/24/14 - 11/25/14 [facility] [address] [place] [address] Professional Services provided by [employer] [place] [address]- Discharge Disposition: Home Physician Attending: Melanie Valadez MD Physician Admitting: Melanie Valadez MD Vital Signs 1 2 3 Most recent to oldest [Reference Range]: 157.48 cm (11/24/14 8:39 PM) Height 98 DegF (11/25/14 10:04 AM) 97.8 DegF (11/25/14 4:30 AM) 98.1 DegF (11/24/14 10:28 PM) Temperature Oral [96.4-99.1 DegF] 121/61 mmHg (11/25/14 10:04 AM) 105/51 mmHg (11/25/14 4:30 AM) 107/57 mmHg (11/24/14 10:28 PM) Blood Pressure [90-140/60-90 mmHg] 18 BRMIN (11/25/14 10:04 AM) 18 BRMIN (11/25/14 4:30 AM) 18 BRMIN (11/24/14 10:28 PM) Respiratory Rate [14-20 BRMIN] 93 bpm (11/25/14 10:04 AM) 96 bpm (11/24/14 8:26 PM) Peripheral Pulse Rate [60-100 bpm] 79.545 kg (11/24/14 8:39 PM) Weight 32.07 m2 (11/24/14 8:39 PM) Body Mass Index Problem List Condition Effective Dates Status Health Status Informant Anxiety(Confirmed) Resolved (Confirmed) 10/13/14 Active (Confirmed) 03/31/09 - 12/22/09 Resolved (Confirmed) 05/01/08 - 01/22/09 Resolved Allergies, Adverse Reactions, Alerts Substance Reaction Severity Status NKDA Active Medications Ambien 5 mg, 1 tab, Route: PO, Drug form: TAB, Bedtime, Dosing Weight 79.545, kg, PRN I nsomnia, Start date: 11/25/14 0:37:00, Duration: 30 day, Stop date: 12/25/14 0:3 6:00 Notes: (Same As: Ambien) Start Date: 11/25/14 Stop Date: 11/25/14 Status: Discontinued iron sulfate (ferrous sulfate) 325 mg oral tablet 325 mg=1 tab, PO, TID, 0 Refill(s) Start Date: 11/25/14 Status: Ordered Iron-150 oral tablet 1 tab, PO, Daily, 0 Refill(s) Start Date: 11/25/14 Stop Date: 11/25/14 Status: Discontinued Lactated Ringers Injection IV 1,000 mL 1,000 mL, Rate: 125 ml/hr, Infuse over: 8 hr, Route: IV, Dosing Weight 79.545 kg , Total Volume: 1,000, Start date: 11/24/14 21:18:00, Duration: 30 day, Stop damaris e: 12/24/14 21:17:00 Start Date: 11/24/14 Stop Date: 11/25/14 Status: Discontinued multivitamin, 1 tab, Route: PO, Drug Form: TAB, Dosing Weight 79.545, kg, Daily, Start date: 0 11/25/14 9:00:00, Duration: 30 day, Stop date: 12/24/14 9:00:00 Start Date: 11/25/14 Stop Date: 11/25/14 Status: Discontinued NexIUM 40 mg oral delayed release capsule 40 mg=1 cap, PO, Daily, 0 Refill(s) Start Date: 11/25/14 Status: Ordered Ofirmev 1,000 mg, 100 mL, Route: IV, Drug form: INJ, ONCE, Dosing Weight 79.545, kg, PRN Pain Score 1-3, for > or=50 kg, Start date: 11/24/14 21:20:00 Notes: Infuse over 15 minutesDo not exceed 4gm/day of acetaminophen MEDICAT ION WASTE Product Size: 1000 mgProduct Wasted: ___ mg Start Date: 11/24/14 Stop Date: 11/24/14 Status: Completed Ofirmev 1,000 mg, 100 mL, Route: IV, Drug form: INJ, Q6H, Dosing Weight 79.545, kg, PRN Pain Score 1-3, for > or=50 kg, Start date: 11/25/14 0:38:00, Duration: 30 day, Stop date: 12/25/14 0:37:00 Notes: Infuse over 15 minutesDo not exceed 4gm/day of acetaminophen MEDICAT ION WASTE Product Size: 1000 mgProduct Wasted: ___ mg Start Date: 11/25/14 Stop Date: 11/25/14 Status: Discontinued Pepcid 20 mg oral tablet 20 mg, 1 tab, Route: PO, Drug form: TAB, Q12H, Dosing Weight 79.545, kg, Start d ate: 11/25/14 9:00:00, Duration: 30 day, Stop date: 12/24/14 21:00:00 Notes: (Same as: Pepcid) Start Date: 11/25/14 Stop Date: 11/25/14 Status: Discontinued 1 oral capsule 1 cap, PO, Daily, 0 Refill(s) Start Date: 11/25/14 Status: Ordered Saline Flush 0.9% 10 ml, Route: IVP, Drug Form: INJ, Dosing Weight 79.545, kg, PRN, PRN Line Flush , Start date: 11/24/14 21:16:00, Duration: 30 day, Stop date: 12/24/14 21:15:00 Notes: (Same as: BD Posiflush) Start Date: 11/24/14 Stop Date: 11/25/14 Status: Discontinued Results ELECTROLYTES Most recent to 1 oldest [Reference Range]: Sodium Lvl [135-145 140 mEq/L mEq/L] (11/24/14 10:28 PM) Potassium Lvl 3.4 mEq/L [3.5-5.1 mEq/L] *LOW* (11/24/14 10:28 PM) Chloride Lvl [95-109 106 mEq/L mEq/L] (11/24/14 10:28 PM) CO2 [24-32 mEq/L] 22 mEq/L *LOW* (11/24/14 10:28 PM) AGAP [10.0-20.0 15.4 mEq/L mEq/L] (11/24/14 10:28 PM) CHEM PANEL Most recent to 1 oldest [Reference Range]: Creatinine Lvl 0.6 mg/dL [0.5-1.4 mg/dL] (11/24/14 10:28 PM) eGFR 128 mL/min/1.73m2 1 *NA* (11/24/14 10:28 PM) BUN [7-22 mg/dL] 9 mg/dL (11/24/14 10:28 PM) Glucose Lvl [70-99 88 mg/dL 2 mg/dL] (11/24/14 10:28 PM) Calcium Lvl 8.4 mg/dL [8.5-10.5 mg/dL] *LOW* (11/24/14 10:28 PM) 1Result Comment: The eGFR is calculated using [...] from the National Kidney Disease Education Program ( NKDEP) which additionally recommends that when the eGFR is used in patients with extremes of body mass index for purposes of drug dosing, the eGFR should be mul tiplied by the estimated BMI. 2Interpretive Data: Adult reference range values reflect the clinical guidelines of the [place] [employer]. URINE AND STOOL Most recent to 1 oldest [Reference Range]: UA Turbidity [Clear] Clear (11/24/14 10:28 PM) UA Color [Yellow] Yellow *NA* (11/24/14 10:28 PM) UA pH [5.0-8.0] 6.0 (11/24/14 10:28 PM) UA Spec Grav 1.019 [<=1.030] (11/24/14 10:28 PM) UA Glucose [Negative Negative mg/dL mg/dL] *NA* (5/29/15 10:28 PM) UA Blood [Negative] Negative (11/24/14 10:28 PM) UA Ketones [Negative Negative mg/dL mg/dL] *NA* (11/24/14 10:28 PM) UA Protein [Negative 20 mg/dL mg/dL] *ABN* (11/24/14 10:28 PM) UA Urobilinogen 2.0 mg/dL [0.1-1.0 mg/dL] *HI* (11/24/14 10:28 PM) UA Bili [Negative] Negative *NA* (11/24/14 10:28 PM) UA Leuk Est Negative [Negative] (11/24/14 10:28 PM) UA Nitrite Negative [Negative] (11/24/14 10:28 PM) UA WBC [0-5 /HPF] 3 /HPF (11/24/14 10:28 PM) UA Sq Epi [Few /LPF] Few /LPF *NA* (11/24/14 10:28 PM) UA Mucus [None Seen Few /LPF /LPF] *NA* (11/24/14 10:28 PM) UA Trans Epi [<=0 9 /LPF /LPF] *HI* (11/24/14 10:28 PM) HEMATOLOGY Most recent to 1 oldest [Reference Range]: WBC [3.7-10.4 K/CMM] 10.7 K/CMM *HI* (11/24/14 10:28 PM) RBC [4.20-5.40 3.68 M/CMM M/CMM] *LOW* (11/24/14 10:28 PM) Hgb [12.0-16.0 g/dL] 9.3 g/dL *LOW* (11/24/14 10:28 PM) Hct [36.0-48.0 %] 29.0 % *LOW* (11/24/14 10:28 PM) MCV [80.0-98.0 fL] 78.8 fL *LOW* (11/24/14 10:28 PM) MCH [27.0-31.0 pg] 25.2 pg *LOW* (11/24/14 10:28 PM) MCHC [32.0-36.0 32.0 g/dL g/dL] (11/24/14 10:28 PM) RDW [11.5-14.5 %] 17.6 % *HI* (11/24/14 10:28 PM) Platelet [133-450 314 K/CMM K/CMM] (11/24/14 10:28 PM) MPV [7.4-10.4 fL] 8.1 fL (11/24/14 10:28 PM) Segs [45.0-75.0 %] 70.4 % (11/24/14 10:28 PM) Lymphocytes 18.6 % [20.0-40.0 %] *LOW* (11/24/14 10:28 PM) Monocytes [2.0-12.0 10.0 % %] (11/24/14 10:28 PM) Eosinophils [0.0-4.0 0.9 % %] (11/24/14 10:28 PM) Basophils [0.0-1.0 0.1 % %] (11/24/14 10:28 PM) Segs-Bands # 7.5 K/CMM [1.5-8.1 K/CMM] (11/24/14 10:28 PM) Lymphocytes # 2.0 K/CMM [1.0-5.5 K/CMM] (11/24/14 10:28 PM) Monocytes # [0.0-0.8 1.1 K/CMM K/CMM] *HI* (11/24/14 10:28 PM) Eosinophils # 0.1 K/CMM [0.0-0.5 K/CMM] (11/24/14 10:28 PM) Microcyte [None 1+ Seen] *ABN* (11/24/14 10:28 PM) Immunizations No data available for this section Procedures No data available for this section Social History Social History Type Response Substance Abuse Use: None. Alcohol Never Smoking Status Former smoker; Exposure to Tobacco Smoke None; Cigarette Smoking Last 365 Days No; Reg Smoking Cessation Counseling No Assessment and Plan No data available for this section
--- OUTSIDE RECORDS SUMMARY | 2018-05-16 18:08 | XMS REPORT ---
Author Author [facility] Address Unknown Phone Unavailable Care Team Providers Care Veterinary Nurse Name Role Phone Unavailable Unavailable Payers Payer Name Policy Type Policy Number Effective Date Expiration Date Problems This patient has no known problems. Allergies, Adverse Reactions, Alerts Allergy Name Allergy Type Status Severity Reaction(s) Onset Date Inactive Date Treating Clinician Comments No Known Drug Allergies DA Active U 2018-05-06 00:00:00 Medications This patient has no known medications.
--- OUTSIDE RECORDS SUMMARY | 2018-05-16 18:08 | XMS REPORT | Summary of Care ---
Author Author [facility] Organization [facility] Address Unknown Phone Unavailable Encounter ENEDINA Hannah(JEAN CLAUDE) [id number] Date(s): 10/21/17 - 10/21/17 [facility] [address] [place] [address]- Discharge Disposition: [facility]TC Left B4 Treatment Cmplt-MSE Cmplt Attending Physician: Drew Fernandes MD Vital Signs Most recent to 1 oldest [Reference Range]: Height 157.48 cm (10/21/17 5:38 PM) Temperature Oral 98.2 DegF [96.4-99.1 DegF] (10/21/17 5:38 PM) Blood Pressure 117/73 mmHg [90-140/60-90 mmHg] (10/21/17 5:38 PM) Respiratory Rate 18 BRMIN [14-20 BRMIN] (10/21/17 5:38 PM) Peripheral Pulse 81 bpm Rate [60-100 bpm] (10/21/17 5:38 PM) Weight 77.273 kg (10/21/17 5:38 PM) Body Mass Index 31.16 m2 (10/21/17 5:38 PM) Problem List Condition Effective Dates Status Health Status Informant Anemia(Confirmed) Resolved Anxiety(Confirmed) Resolved (Confirmed) 10/13/14 - 12/25/14 Resolved (Confirmed) 03/31/09 - 12/22/09 Resolved (Confirmed) 05/01/08 - 01/22/09 Resolved Allergies, Adverse Reactions, Alerts Substance Reaction Severity Status NKDA Active Medications No data available for this section Results No data available for this section Immunizations Given and Recorded Vaccine Date Status Refusal Reason diphtheria/pertussis, acel/tetanus adult 12/27/14 Given Procedures No data available for this section Social History Social History Type Response Substance Abuse Use: None. Sexual Sexually active: Yes. History of sexual abuse: No. Employment/School Highest education level: High school. Alcohol Never Smoking Status Current some day smoker; Type: Cigarettes; Exposure to Tobacco Smoke None; Cigarette Smoking Last 365 Days No; Reg Smoking Cessation Counseling No entered on: 06/22/17 Assessment and Plan No data available for this section
--- OUTSIDE RECORDS SUMMARY | 2018-05-16 18:08 | XMS REPORT | Summary of Care ---
Author Organization Unknown Address Unknown Phone Unavailable Encounter HQ Brielle(JEAN CLAUDE) [id number] Date(s): 12/22/14 - 12/22/14 [facility] [address] Professional Services provided by [facility] [employer] [facility] [place] [address]- Discharge Disposition: Home Physician Attending: Melanie Valadez MD Physician Admitting: Melanie Valadez MD Vital Signs Most recent to 1 oldest [Reference Range]: Height 160.02 cm (12/22/14 10:46 PM) Blood Pressure 108/72 mmHg [90-140/60-90 mmHg] (12/22/14 10:46 PM) Respiratory Rate 18 BRMIN [14-20 BRMIN] (12/22/14 10:46 PM) Peripheral Pulse 131 bpm Rate [60-100 bpm] *HI* (12/22/14 10:46 PM) Weight 84.545 kg (12/22/14 10:46 PM) Body Mass Index 33.02 m2 (12/22/14 10:46 PM) Problem List Condition Effective Dates Status [...] level: High school. Alcohol Never Smoking Status Never smoker; Exposure to Tobacco Smoke None; Cigarette Smoking Last 365 Days No; Reg Smoking Cessation Counseling No Assessment and Plan No data available for this section
--- OUTSIDE RECORDS SUMMARY | 2018-05-16 18:08 | XMS REPORT | Summary of Care ---
Author Organization Unknown Address Unknown Phone Unavailable Encounter [facility](JEAN CLAUDE) [id number] Date(s): 12/24/14 - 12/27/14 [facility] [address] [place] [address] Professional Services provided by [facility] [place] [address]- Discharge Disposition: Home Physician Attending: Melanie Valadez MD Physician Admitting: Melanie Valadez MD Vital Signs 1 2 3 Most recent to oldest [Reference Range]: 160.02 cm (12/24/14 6:45 PM) Height 97.8 DegF (12/27/14 12:00 AM) 98.3 DegF (12/26/14 4:30 PM) 97.9 DegF (12/26/14 10:05 AM) Temperature Oral [96.4-99.1 DegF] 117/72 mmHg (12/27/14 12:00 AM) 105/62 mmHg (12/26/14 4:30 PM) 114/71 mmHg (12/26/14 10:05 AM) Blood Pressure [90-140/60-90 mmHg] 17 BRMIN (12/27/14 12:00 AM) 18 BRMIN (12/26/14 4:30 PM) 18 BRMIN (12/26/14 10:05 AM) Respiratory Rate [14-20 BRMIN] 69 bpm (12/27/14 12:00 AM) 92 bpm (12/26/14 4:30 PM) 84 bpm (12/26/14 10:05 AM) Peripheral Pulse Rate [60-100 bpm] 84.545 kg (12/24/14 6:45 PM) Weight 33.02 m2 (12/24/14 6:45 PM) Body Mass Index Problem List Condition Effective Dates Status Health Status Informant Anxiety(Confirmed) Resolved (Confirmed) 10/13/14 - 12/25/14 Resolved (Confirmed) 03/31/09 - 12/22/09 Resolved (Confirmed) 05/01/08 - 01/22/09 Resolved Allergies, Adverse Reactions, Alerts Substance Reaction Severity Status NKDA Active Medications acetaminophen 650 mg, 2 tab, Route: PO, Drug form: TAB, Q4H, Dosing Weight 84.545, kg, PRN Hea dache 1-3, Start date: 12/25/14 14:06:00, Duration: 30 day, Stop date: 01/24/15 14:05:00 Notes: Do not exceed 4 gm/day. (Same as: Tylenol) Start Date: 12/25/14 Stop Date: 12/27/14 Status: Discontinued acetaminophen-hydrocodone 325 mg-5 mg oral tablet 1 tab, Route: PO, Drug Form: TAB, Dosing Weight 84.545, kg, Q4H, PRN Pain Score 4-6, Start date: 12/25/14 14:06:00, Duration: 30 day, Stop date: 01/24/15 14:05: 00 Notes: (Same as: Ophelia 325/5) Do not exceed 4gm/day of acetaminophen. Start Date: 12/25/14 Stop Date: 12/27/14 Status: Discontinued acetaminophen-hydrocodone 325 mg-7.5 mg oral tablet 1 tab, Route: PO, Drug Form: TAB, Dosing Weight 84.545, kg, Q4H, PRN Pain Score 7-10, Start date: 12/25/14 14:06:00, Duration: 30 day, Stop date: 01/24/15 14:05 :00 Notes: Same as Ophelia 325-7.5mg Do not exceed 4gm/day of acetaminophen. Start Date: 12/25/14 Stop Date: 12/27/14 Status: Discontinued bisacodyl 10 mg, 1 supp, Route: MS, Drug form: SUPP, PRN, Dosing Weight 84.545, kg, PRN Ot her -See Comment, Start date: 12/25/14 14:06:00, Duration: 30 day, Stop date: 14:05:00 Notes: (Same As: Dulcolax, Bisco-Lax) Start Date: 12/25/14 Stop Date: 12/27/14 Status: Discontinued bisacodyl 15 mg, 3 tab, Route: PO, Drug form: ECTAB, Daily, Dosing Weight 84.545, kg, PRN Other -See Comment, Start date: 12/25/14 14:06:00, Duration: 30 day, Stop date: 01/24/15 14:05:00 Notes: (Same As: Dulcolax, Correctol) (Do Not Crush) "Do Not Crush" Start Date: 12/25/14 Stop Date: 12/27/14 Status: Discontinued butorphanol 2 mg, 1 mL, Route: IVP, Drug form: INJ, Q2H, Dosing Weight 84.545, kg, PRN Pain Score 6-10, Start date: 12/24/14 18:55:00, Duration: 30 day, Stop date: 01/23/15 18:54:00 Notes: (Same As: Stadol) MEDICATION WASTE Product Size: 2 mgProduct Was dexter: ___ mg Start Date: 12/24/14 Stop Date: 12/26/14 Status: Discontinued butorphanol 1 mg, 0.5 mL, Route: IVP, Drug form: INJ, Q2H, Dosing Weight 84.545, kg, PRN Karma n Score 1-5, Start date: 12/24/14 18:55:00, Duration: 30 day, Stop date: 5 18:54:00 Notes: (Same As: Stadol) MEDICATION WASTE Product Size: 2 mgProduct Was dexter: ___ mg Start Date: 12/24/14 Stop Date: 12/26/14 Status: Discontinued carboprost 250 microgram, 1 mL, Route: IM, Drug form: INJ, ONCALL, Dosing Weight 84.545, kg , Start date: 12/24/14 19:00:00, Duration: 30 day, Stop date: 01/23/15 18:59:00 Notes: (Same As: Hemabate) Start Date: 12/24/14 Stop Date: 12/26/14 Status: Discontinued citric acid-sodium citrate 30 mL, Route: PO, Drug Form: SOLN, Dosing Weight 84.545, kg, ONCALL, Start date: 12/24/14 19:00:00, Duration: 30 day, Stop date: 01/23/15 18:59:00 Notes: (Same As: Bicitra, Cytra-2) Sodium citrate-citric acid (500-334 mg/5 mL): 1 mL contains sodium 1 mEq/mL and bicarbonate 1 mEq/mL Start Date: 12/24/14 Stop Date: 12/26/14 Status: Discontinued Colace 100 mg oral capsule 100 mg=1 cap, PO, BID, PRN Constipation, # 20 cap, 0 Refill(s) Start Date: 12/27/14 Status: Ordered Dermoplast 20% topical spray 1 spray, Route: TOP, PRN, Drug form: SPRY, PRN Irritation, Start date: 12/25/14 14:06:00, Duration: 30 day, Stop date: 01/24/15 14:05:00 Notes: (Same As: Dermoplast) FOR EXTERNAL USE ONLY Start Date: 12/25/14 Stop Date: 12/27/14 Status: Discontinued docusate 100 mg, 1 cap, Route: PO, Drug form: CAP, BID, Dosing Weight 84.545, kg, PRN Con stipation, Start date: 12/25/14 14:06:00, Duration: 30 day, Stop date: 01/24/15 14:05:00 Notes: (Same as: Colace) (Do Not Crush) Start Date: 12/25/14 Stop Date: 12/27/14 Status: Discontinued famotidine 20 mg, 2 mL, Route: IVP, Drug form: INJ, ONCALL, Dosing Weight 84.545, kg, Start date: 12/24/14 19:00:00, Duration: 30 day, Stop date: 01/23/15 18:59:00 Notes: (Same as: Pepcid)Can be dilute in 5-10cc NS IVP: Slow IV push over at le ast 2 minutes. Start Date: 12/24/14 Stop Date: 12/26/14 Status: Discontinued ibuprofen 800 mg, 1 tab, Route: PO, Drug form: TAB, Q8H, Dosing Weight 84.545, kg, PRN Karma n Score 6-10, Start date: 12/25/14 14:06:00, Duration: 30 day, Stop date: 14:05:00 Notes: (Same as: Motrin)"Do Not Crush" Take with food. Start Date: 12/25/14 Stop Date: 12/27/14 Status: Discontinued ibuprofen 600 mg, 1 tab, Route: PO, Drug form: TAB, Q6H, Dosing Weight 84.545, kg, PRN Karma n Score 1-5, Start date: 12/25/14 14:06:00, Duration: 30 day, Stop date: 5 14:05:00 Notes: (Same as: Motrin)"Do Not Crush" Take with food. Start Date: 12/25/14 Stop Date: 12/27/14 Status: Discontinued ibuprofen 600 mg oral tablet 600 mg=1 tab, PO, Q6H, PRN Pain, take with food, # 30 tab, 0 Refill(s) Special Instructions: take with food Start Date: 12/27/14 Status: Ordered Lactated Ringers (Bolus) IV 1,000 mL, 1,000 ml/hr, Infuse Over: 1 hr, Route: IV, 1,000, Drug form: INJ, ONCE , Dosing Weight 84.545 kg, Start date: 12/24/14 18:55:00, Stop date: 12/24/14 18 :55:00, Bolus for regional anesthesia per unit protocol Start Date: 12/24/14 Stop Date: 12/26/14 Status: Discontinued Lactated Ringers IV 1,000 mL 1,000 mL, Rate: 100 ml/hr, Infuse over: 10 hr, Route: IV, Dosing Weight 84.545 k g, Total Volume: 1,000, Start date: 12/25/14 14:06:00, Duration: 30 day, Stop da te: 01/24/15 14:05:00 Start Date: 12/25/14 Stop Date: 12/27/14 Status: Discontinued Lactated Ringers IV 1,000 mL 1,000 mL, Rate: 125 ml/hr, Infuse over: 8 hr, Route: IV, Dosing Weight 84.545 kg , Total Volume: 1,000, Start date: 12/24/14 18:55:00, Duration: 30 day, Stop damaris e: 01/23/15 18:54:00 Start Date: 12/24/14 Stop Date: 12/26/14 Status: Discontinued lanolin topical 1 appl, Route: TOP, PRN, Drug form: OINT, PRN Other -See Comment, Start date: 14:06:00, Duration: 30 day, Stop date: 01/24/15 14:05:00 Notes: (Same as:Lanolin) Start Date: 12/25/14 Stop Date: 12/27/14 Status: Discontinued lidocaine 1% 20 mL, Route: PERCUT, Drug Form: INJ, Dosing Weight 84.545, kg, PRN, PRN Other - See Comment, Start date: 12/24/14 18:55:00, Duration: 1 doses or times, Stop damaris e: Limited # of times Notes: (Same as: Xylocaine) Start Date: 12/24/14 Stop Date: 12/26/14 Status: Discontinued lidocaine 1% injectable solution 0.25 mL, Route: INTRADERM, Drug Form: INJ, Dosing Weight 84.545, kg, PRN, PRN Ot her -See Comment, Start date: 12/24/14 18:55:00, Duration: 30 day, Stop date: 18:54:00 Notes: Preservative free. (Same as: Xylocaine MPF) Start Date: 12/24/14 Stop Date: 12/26/14 Status: Discontinued M-M-R II 0.5 mL, Route: SUB-Q, Drug Form: PDR/INJ, Dosing Weight 84.545, kg, ONCALL, Give only if patient rubella non-immune, Start date: 12/25/14 15:00:00, Duration: 1 doses or times Notes: (Same as: M-M-R II) (xfcsqps-hsknc-nakyofs virus vaccine 0.5 ml INJ VL) GIVE PRIOR TO DISCHARGE Start Date: 12/25/14 Stop Date: 12/27/14 Status: Discontinued methylergonovine 0.2 mg, 1 mL, Route: IM, Drug form: INJ, PRN, Dosing Weight 84.545, kg, PRN Othe r -See Comment, Start date: 12/25/14 14:06:00, Duration: 30 day, Stop date: 12/28 03/13 14:05:00 Notes: (Same as:Methergine) Start Date: 12/25/14 Stop Date: 12/27/14 Status: Discontinued methylergonovine 0.2 mg, 1 mL, Route: IM, Drug form: INJ, ONCALL, Dosing Weight 84.545, kg, Start date: 12/24/14 19:00:00, Duration: 30 day, Stop date: 01/23/15 18:59:00 Notes: (Same as:Methergine) Start Date: 12/24/14 Stop Date: 12/26/14 Status: Discontinued misoprostol 1,000 microgram, 5 tab, Route: MS, Drug form: TAB, ONCALL, Dosing Weight 84.545, kg, Start date: 12/24/14 19:00:00, Duration: 1 doses or times Notes: (Same as:Cytotec) Take with food Start Date: 12/24/14 Stop Date: 12/26/14 Status: Discontinued ondansetron 4 mg, 2 mL, Route: IVP, Drug form: INJ, Q8H, Dosing Weight 84.545, kg, PRN Nause a & Vomiting, Start date: 12/25/14 14:06:00, Duration: 30 day, Stop date: 01/24/15 14:05:00 Notes: (Same as: John) MEDICATION WASTE Product Size: 4 mgProduct Was dexter: ___ mg Start Date: 12/25/14 Stop Date: 12/25/14 Status: Discontinued ondansetron 4 mg, 2 mL, Route: IVP, Drug form: INJ, Q8H, Dosing Weight 84.545, kg, PRN Nause a & Vomiting, Start date: 12/24/14 18:55:00, Duration: 30 day, Stop date: 01/23/15 18:54:00 Notes: (Same as: John) MEDICATION WASTE Product Size: 4 mgProduct Was dexter: ___ mg Start Date: 12/24/14 Stop Date: 12/26/14 Status: Discontinued oxytocin 30 units in D5LR 500mL (Titrate) IV 30 unit 30 unit, 500 mL, Rate: 42 ml/hr, Infuse over: 11.9 hr, Dosing Weight 84.545, kg, Route: IV, Total Volume: 500 mL, Start date: 12/25/14 14:06:00, Duration: 2 dos es or times, Stop date: 12/26/14 13:53:00, Replace Every: 11.9 hr Notes: (Same as: OXYTOCIN-D5LR) Start Date: 12/25/14 Stop Date: 12/25/14 Status: Discontinued oxytocin 30 units in LR 500 mL 30 unit 30 unit, 500 mL, Rate: Titrate, Dosing Weight 84.545, kg, Route: IV, Total Volum e: 500 mL, Start date: 12/24/14 18:55:00, Duration: 2 day, Stop date: 12/26/14 1 8:54:00, Replace Every: 24 hr Notes: (Same as: OXYTOCIN-D5LR) Start Date: 12/24/14 Stop Date: 12/26/14 Status: Discontinued oxytocin 30 units in LR 500 mL 30 unit 30 unit, 500 mL, Rate: 42 ml/hr, Infuse over: 11.9 hr, Dosing Weight 84.545, kg, Route: IV, Total Volume: 500 mL, Start date: 12/24/14 18:55:00, Duration: 2 day, Stop date: 12/26/14 18:54:00, Replace Every: 11.9 hr Notes: (Same as: OXYTOCIN-D5LR) Start Date: 12/24/14 Stop Date: 12/26/14 Status: Discontinued penicillin G potassium 2,500,000 unit, 50 mL, Route: IVPB, Drug form: INJ, ABXQ4H, Dosing Weight 84.545 , kg, Start date: 12/24/14 23:00:00 Start Date: 12/24/14 Stop Date: 12/26/14 Status: Discontinued penicillin G potassium 5,000,000 units injection 5,000,000 unit, Route: IVPB, Drug form: PDR/INJ, ONCALL, Dosing Weight 84.545, k g, Start date: 12/24/14 19:00:00, Duration: 1 doses or times Notes: (Same as: Pfizerpen) MEDICATION WASTE Product Size: 5,000,000 un itProduct Wasted: ___ unit Start Date: 12/24/14 Stop Date: 12/25/14 Status: Completed Multivitamins oral tablet 1 tab, Route: PO, Drug Form: TAB, Dosing Weight 84.545, kg, Daily, Start date: 0 12/26/14 9:00:00, Duration: 30 day, Stop date: 01/24/15 9:00:00 Start Date: 12/26/14 Stop Date: 12/27/14 Status: Discontinued terbutaline 0.25 mg, 0.25 mL, Route: SUB-Q, Drug form: INJ, PRN, Dosing Weight 84.545, kg, P RN Other -See Comment, Start date: 12/24/14 18:55:00, Duration: 1 doses or times , Stop date: Limited # of times Notes: DO NOT USE IN [employer]NA[employer] [place] AREA(Same As: Domingo) Start Date: 12/24/14 Stop Date: 12/26/14 Status: Discontinued tramadol 50 mg oral tablet 50 mg=1 tab, PO, Q6H, PRN Pain, X 10 day, # 24 tab, 0 Refill(s) Start Date: 12/27/14 Stop Date: 01/06/15 Status: Ordered zolpidem 5 mg, 1 tab, Route: PO, Drug form: TAB, Bedtime, Dosing Weight 84.545, kg, PRN S leep, Start date: 12/25/14 14:06:00, Duration: 30 day, Stop date: 01/24/15 14:05 :00 Notes: (Same As: Jayden) Start Date: 12/25/14 Stop Date: 12/27/14 Status: Discontinued Results BLOOD BANK RESULTS Most recent to 1 2 oldest [Reference Range]: ABO/Rh O POS *Unknown* (12/24/14 8:13 PM) Antibody Scrn Negative (12/24/14 8:13 PM) RBC product Product available (12/25/14 9:30 AM) CHEM PANEL Most recent to 1 2 oldest [Reference Range]: Creatinine Lvl 0.7 mg/dL [0.5-1.4 mg/dL] (12/24/14 8:13 PM) eGFR 122 mL/min/1.73m2 1 *NA* (12/24/14 8:13 PM) Uric Acid [2.5-7.0 5.4 mg/dL mg/dL] (12/24/14 8:13 PM) ALT [0-65 unit/L] 14 unit/L (12/24/14 8:13 PM) AST [0-37 unit/L] 17 unit/L (12/24/14 8:13 PM) LDH [98-192 unit/L] 207 unit/L *HI* (12/24/14 8:13 PM) 1Result Comment: The eGFR is calculated [...] be mul tiplied by the estimated BMI. URINE CHEM Most recent to [Reference Range]: U Creatinine 205.2 mg/dL 2 *NA* (12/24/14 8:13 PM) U Protein 17.2 mg/dL 3 *NA* (12/24/14 8:13 PM) U Prot/Creat 0.1 *NA* (12/24/14 8:13 PM) 2Interpretive Data: No established reference ranges. 3Interpretive Data: No established reference ranges. IMMUNOLOGY Most recent to [Reference Range]: Treponemal Scr [Non Non Reactive Reactive] *NA* (12/24/14 8:13 PM) Hep Bs Ag [Negative] Negative *NA* (12/24/14 8:13 PM) HEMATOLOGY Most recent to [Reference Range]: WBC [3.7-10.4 K/CMM] 6.9 K/CMM (12/24/14 8:13 PM) RBC [4.20-5.40 3.79 M/CMM M/CMM] *LOW* (12/24/14 8:13 PM) Hgb [12.0-16.0 g/dL] 10.9 g/dL 9.1 g/dL *LOW* *LOW* (12/26/14 4:48 AM) (12/24/14 8:13 PM) Hct [36.0-48.0 %] 34.1 % 28.4 % *LOW* *LOW* (12/26/14 4:48 AM) (12/24/14 8:13 PM) MCV [80.0-98.0 fL] 74.8 fL *LOW* (12/24/14 8:13 PM) MCH [27.0-31.0 pg] 24.1 pg *LOW* (12/24/14 8:13 PM) MCHC [32.0-36.0 32.2 g/dL g/dL] (12/24/14 8:13 PM) RDW [11.5-14.5 %] 17.9 % *HI* (12/24/14 8:13 PM) Platelet [133-450 284 K/CMM K/CMM] (12/24/14 8:13 PM) MPV [7.4-10.4 fL] 8.5 fL (12/24/14 8:13 PM) Segs [45.0-75.0 %] 72.8 % (12/24/14 8:13 PM) Lymphocytes 17.8 % [20.0-40.0 %] *LOW* (12/24/14 8:13 PM) Monocytes [2.0-12.0 8.4 % %] (12/24/14 8:13 PM) Eosinophils [0.0-4.0 0.6 % %] (12/24/14 8:13 PM) Basophils [0.0-1.0 0.4 % %] (12/24/14 8:13 PM) Segs-Bands # 5.0 K/CMM [1.5-8.1 K/CMM] (12/24/14 8:13 PM) Lymphocytes # 1.2 K/CMM [1.0-5.5 K/CMM] (12/24/14 8:13 PM) Monocytes # [0.0-0.8 0.6 K/CMM K/CMM] (12/24/14 8:13 PM) Microcyte [None 1+ Seen] *ABN* (12/24/14 8:13 PM) Immunizations Vaccine Date Refusal Reason diphtheria/pertussis, acel/tetanus adult 12/27/14 Procedures No data available for this section Social History Social History Type Response Substance Abuse Use: None. Sexual Sexually active: Yes. History of sexual abuse: No. Employment/School Highest education level: High school. Alcohol Never Smoking Status Never smoker; Exposure to Tobacco Smoke None; Cigarette Smoking Last 365 Days No; Reg Smoking Cessation Counseling No Assessment and Plan Extracted from: Title: Discharge Summary PPD Author: Reba Edwards MD Date: 12/27/14 Discharge Information Discharge Summary Information: Admitted 12/24/2014, Discharged 12/27/2014, Discharge medications. Discharge Plan Discharge Summary Plan Discharge Status: stable. Discharge instructions given: to patient. Discharge disposition: discharge to home. Prescriptions: written and given to patient, Please see discharge medication reconciliation. Orders Diagnosis (spontaneous vaginal delivery) (ICD9 650, Working, Medical). Course Progressing as expected. Orders -Pelvic rest for six weeks. -Notify MD for fever . Education and Follow-up Counseled: patient. Discharge Planning: Follow up in 6 weeks for post check.
--- OUTSIDE RECORDS SUMMARY | 2018-05-16 18:08 | XMS REPORT | Summary of Care ---
Author Author [facility] Organization [facility] Address Unknown Phone Unavailable Encounter [facility](JEAN CLAUDE) [id number] Date(s): 06/22/17 - 06/22/17 [facility] [address] [place] [address]- Discharge Diagnosis: Blunt head injury Discharge Diagnosis: Ankle strain Discharge Disposition: Home or Self Care Attending Physician: Lidia Cash MD Vital Signs 1 2 3 Most recent to oldest [Reference Range]: 157.48 cm (06/22/17 3:34 AM) Height 97.8 DegF (06/22/17 7:21 AM) 97.7 DegF (06/22/17 3:34 AM) Temperature Oral [96.4-99.1 DegF] 112/71 mmHg (06/22/17 7:21 AM) 120/68 mmHg (06/22/17 4:03 AM) 120/77 mmHg (06/22/17 3:34 AM) Blood Pressure [90-140/60-90 mmHg] 14 BRMIN (06/22/17 7:21 AM) 16 BRMIN (06/22/17 4:03 AM) 18 BRMIN (06/22/17 3:34 AM) Respiratory Rate [14-20 BRMIN] 60 bpm (06/22/17 7:21 AM) 68 bpm (06/22/17 4:03 AM) 77 bpm (06/22/17 3:34 AM) Peripheral Pulse Rate [60-100 bpm] 77.273 kg (06/22/17 3:34 AM) Weight 31.16 m2 (06/22/17 3:34 AM) Body Mass Index Problem List Condition Effective Dates Status Health Status Informant Anemia(Confirmed) Resolved Anxiety(Confirmed) Resolved (Confirmed) 10/13/14 - 6/29/15 Resolved (Confirmed) 03/31/09 - 12/22/09 Resolved (Confirmed) 05/01/08 - 01/22/09 Resolved Allergies, Adverse Reactions, Alerts Substance Reaction Severity Status NKDA Active Medications [place] 5/325 oral tablet 1 tab, Route: PO, Drug Form: TAB, Dosing Weight 77.273, kg, ONCE, STAT, Start da te: 06/22/17 5:12:00 LIABILITY CLAIMS REPRESENTATIVE, Stop date: 06/22/17 5:12:00 LIABILITY CLAIMS REPRESENTATIVE Start Date: 06/22/17 Stop Date: 06/22/17 Status: Completed Results No data available for this section [...]
--- OUTSIDE RECORDS SUMMARY | 2018-05-16 18:08 | XMS REPORT | Summary of Care ---
Author Author [facility] Organization [facility] Address Unknown Phone Unavailable Encounter ENEDINA Hannah(JEAN CLAUDE) [id number] Date(s): 12/23/15 - 12/24/15 [facility] [address] [employer] provided by [facility] [place] [address]- Discharge Disposition: Home Attending Physician: Yaya Saavedra MD Admitting Physician: Yaya Saavedra MD Vital Signs 1 2 3 Most recent to oldest [Reference Range]: 160.02 cm (12/23/15 11:30 PM) Height 96.6 DegF (12/24/15 7:15 AM) 96.5 DegF (12/24/15 5:22 AM) 96.5 DegF (12/24/15 4:54 AM) Temperature Oral [96.4-99.1 DegF] 112/58 mmHg (12/24/15 7:15 AM) 121/74 mmHg (12/24/15 5:22 AM) 121/60 mmHg (12/24/15 4:54 AM) Blood Pressure [90-140/60-90 mmHg] 17 BRMIN (12/24/15 7:15 AM) 16 BRMIN (12/24/15 5:22 AM) 14 BRMIN (12/24/15 4:54 AM) Respiratory Rate [14-20 BRMIN] 57 bpm *LOW* (12/24/15 7:15 AM) 65 bpm (12/24/15 1:50 AM) 62 bpm (12/24/15 1:18 AM) Peripheral Pulse Rate [60-100 bpm] 84.545 kg (12/23/15 11:30 PM) Weight 33.02 m2 (12/23/15 11:30 PM) Body Mass Index Problem List Condition Effective Dates Status Health Status Informant Anemia(Confirmed) Resolved Anxiety(Confirmed) Resolved (Confirmed) 10/13/14 - 12/25/14 Resolved (Confirmed) 03/31/09 - 12/22/09 Resolved (Confirmed) 05/01/08 - 01/22/09 Resolved Allergies, Adverse Reactions, Alerts Substance Reaction Severity Status NKDA Active Medications acetaminophen 650 mg, 2 tab, Route: PO, Drug form: TAB, Q4H, Dosing Weight 84.545, kg, PRN Karma n 1-3/Temp > 100.4 F, Start date: 12/24/15 3:57:00 CDT, Duration: 30 day, Stop date: 01/23/16 3:56:00 CDT Notes: Do not exceed 4 gm/day. (Same as: Tylenol) Start Date: 12/24/15 Stop Date: 12/24/15 Status: Discontinued docusate 100 mg, 1 cap, Route: PO, Drug form: CAP, BID, Dosing Weight 84.545, kg, Start d ate: 12/24/15 9:00:00 CDT, Duration: 30 day, Stop date: 01/22/16 17:00:00 CDT Notes: (Same as: Colace) (Do Not Crush) Start Date: 12/24/15 Stop Date: 12/24/15 Status: Canceled NS (Bolus) IV 1,000 mL, 1,000 ml/hr, Infuse Over: 1 hr, Route: IV, 1,000, Drug form: INJ, ONCE , Priority: STAT, Dosing Weight 84.545 kg, Start date: 12/24/15 3:58:00 CDT, Dur ation: 1 doses or times, Stop date: 12/24/15 3:58:00 CDT Start Date: 12/24/15 Stop Date: 12/24/15 Status: Completed Omnipaque 350mg/ml 85 mL, Route: IVP, Drug Form: SOLN, Dosing Weight 84.545, kg, ONCALL, STAT, Star t date: 12/24/15 2:12:00 CDT, Duration: 1 doses or times, Dose=2.2ml/kg, Max do [id number] -- "To be infused by Radiology Staff ONLY" Start Date: 12/24/15 Stop Date: 12/24/15 Status: Completed ondansetron 4 mg, 2 mL, Route: IVP, Drug form: INJ, Q6H, Dosing Weight 84.545, kg, PRN Nause a & Vomiting, Start date: 12/24/15 3:57:00 CDT, Duration: 30 day, Stop date: 01/23/16 3:56:00 CDT Notes: (Same as: Zofran) MEDICATION WASTE Product Size: 4 mgProduct Was dexter: ___ mg Start Date: 12/24/15 Stop Date: 12/24/15 Status: Discontinued potassium chloride 20 mEq/15 mL oral liquid 40 mEq, 30 mL, Route: PO, Drug form: LIQ, ONCE, Dosing Weight 84.545, kg, Priori ty: STAT, Start date: 12/24/15 1:46:00 CDT, Stop date: 12/24/15 1:46:00 CDT Notes: (Same as: Potassium Chloride) Start Date: 12/24/15 Stop Date: 12/24/15 Status: Completed Saline Flush 0.9% 10 ml, Route: IVP, Drug Form: INJ, Dosing Weight 84.545, kg, PRN, PRN Line Flush , Start date: 12/24/15 3:57:00 CDT, Duration: 30 day, Stop date: 01/23/16 3:56:0 0 CDT Notes: Same as: BD Posiflush Sterile Start Date: 12/24/15 Stop Date: 12/24/15 Status: Discontinued Sodium Chloride 0.9% (Bolus) IV 1,000 mL, 1,000 ml/hr, Infuse Over: 1 hr, Route: IV, 1,000, Drug form: INJ, ONCE , Priority: STAT, Dosing Weight 84.545 kg, Start date: 12/24/15 0:51:00 CDT, Dur ation: 1 doses or times, Stop date: 12/24/15 0:51:00 CDT Start Date: 12/24/15 Stop Date: 12/24/15 Status: Completed sodium chloride 0.9% 1000 ml INJ 1,000 mL 1,000 mL, Rate: 125 ml/hr, Infuse over: 8 hr, Route: IV, Dosing Weight 84.545 kg , Total Volume: 1,000, Start date: 12/24/15 3:57:00 CDT, Duration: 30 day, Stop date: 01/23/16 3:56:00 CDT Start Date: 12/24/15 Stop Date: 12/24/15 Status: Discontinued Results ELECTROLYTES Most recent to 1 oldest [Reference Range]: Sodium Lvl [135-145 141 mEq/L mEq/L] (12/24/15 12:45 AM) Potassium Lvl 3.4 mEq/L [3.5-5.1 mEq/L] *LOW* (12/24/15 12:45 AM) Chloride Lvl [95-109 108 mEq/L mEq/L] (12/24/15 12:45 AM) CO2 [24-32 mEq/L] 26 mEq/L (12/24/15 12:45 AM) AGAP [10.0-20.0 10.4 mEq/L mEq/L] (12/24/15 12:45 AM) CHEM PANEL Most recent to 1 oldest [Reference Range]: Creatinine Lvl 0.92 mg/dL [0.50-1.40 mg/dL] (12/24/15 12:45 AM) eGFR 87 mL/min/1.73m2 1 *NA* (12/24/15 12:45 AM) BUN [7-22 mg/dL] 14 mg/dL (12/24/15 12:45 AM) Glucose Lvl [70-99 106 mg/dL mg/dL] *HI* (12/24/15 12:45 AM) Calcium Lvl 8.8 mg/dL [8.5-10.5 mg/dL] (12/24/15 12:45 AM) 1Result Comment: The eGFR is calculated using [...] be mul tiplied by the estimated BMI. CARDIAC ENZYMES Most recent to 1 oldest [Reference Range]: Troponin-I <0.02 ng/mL [0.00-0.40 ng/mL] (12/24/15 12:45 AM) IMMUNOLOGY Most recent to 1 oldest [Reference Range]: CDC HIV 4th GEN Negative [Negative] (12/24/15 12:45 AM) HEMATOLOGY Most recent to 1 oldest [Reference Range]: WBC [3.7-10.4 K/CMM] 5.3 K/CMM (12/24/15 12:45 AM) RBC [4.20-5.40 4.46 M/CMM M/CMM] (12/24/15 12:45 AM) Hgb [12.0-16.0 g/dL] 10.0 g/dL *LOW* (12/24/15 12:45 AM) Hct [36.0-48.0 %] 32.1 % *LOW* (12/24/15 12:45 AM) MCV [80.0-98.0 fL] 71.9 fL *LOW* (12/24/15 12:45 AM) MCH [27.0-31.0 pg] 22.5 pg *LOW* (12/24/15 12:45 AM) MCHC [32.0-36.0 31.3 g/dL g/dL] *LOW* (12/24/15 12:45 AM) RDW [11.5-14.5 %] 21.4 % *HI* (12/24/15 12:45 AM) Platelet [133-450 315 K/CMM K/CMM] (12/24/15 12:45 AM) MPV [7.4-10.4 fL] 8.6 fL (12/24/15 12:45 AM) Segs [45.0-75.0 %] 50.4 % (12/24/15 12:45 AM) Lymphocytes 34.7 % [20.0-40.0 %] (12/24/15 12:45 AM) Monocytes [2.0-12.0 8.7 % %] (12/24/15 12:45 AM) Eosinophils [0.0-4.0 4.9 % %] *HI* (12/24/15 12:45 AM) Basophils [0.0-1.0 1.3 % %] *HI* (12/24/15 12:45 AM) Segs-Bands # 2.7 K/CMM [1.5-8.1 K/CMM] (12/24/15 12:45 AM) Lymphocytes # 1.8 K/CMM [1.0-5.5 K/CMM] (12/24/15 12:45 AM) Monocytes # [0.0-0.8 0.5 K/CMM K/CMM] (12/24/15 12:45 AM) Eosinophils # 0.3 K/CMM [0.0-0.5 K/CMM] (12/24/15 12:45 AM) Basophils # [0.0-0.2 0.1 K/CMM K/CMM] (12/24/15 12:45 AM) Anisocyte [None 1+ Seen] *ABN* (12/24/15 12:45 AM) Microcyte [None 2+ Seen] *ABN* (12/24/15 12:45 AM) PT [12.0-14.7 13.2 seconds seconds] (12/24/15 12:45 AM) INR [0.85-1.17] 0.97 (12/24/15 12:45 AM) PTT [22.9-35.8 30.3 seconds seconds] (12/24/15 12:45 AM) Immunizations Given and Recorded Vaccine Date Status [...] No Assessment and Plan Extracted from: Title: Hospitalist History and Author: Silvana Eden MD Date: 12/24/15 Physical Assessment/Plan 1.Postural dizziness with presyncope CTA chest negative for PE. bilateral atelectasis. Repeat IVF1 L bolus and ambulate to evaluate. unlikely arrhythmiahowever has intermittent bradycardia- monitor on telemetry 2.Hypokalemia repleted in ED Prophylaxis scds Disposition Hospitalist is primary please page [phone] with questions/concerns Addendum by Karey microcytic anemia: has chronic anemia, in past required transfusions unchanged from Silvana Kelley MD baseline. will need outpt follow up on 12/24/2015 03:59 CDT
--- NOTE | 2018-05-16 19:18 | Diagnostic Imaging Report ---
EXAM: CHEST 2 VIEWS, PA and lateral INDICATION: Chest pain and midsternal/left axillary pain COMPARISON: None FINDINGS: LINES/TUBES: None LUNGS: No consolidations or edema. PLEURA: No effusions or pneumothorax. HEART AND MEDIASTINUM: Normal size and contour. BONES AND SOFT TISSUES: No acute findings. IMPRESSION: No acute thoracic abnormality. Signed by: Dr. Stephanie Royal M.D. on 05/16/2018 7:15 PM
[2018-05-16 19:34] LABS: BASOPHILS % 0.6 % (0.0-1.0); EOSINOPHILS # (AUTO) 0.2 (0.0-0.4); EOSINOPHILS % 2.2 % (0.0-6.0); HEMATOCRIT 35.1 % (34.2-44.1); HEMOGLOBIN 10.1 g/dL (12.0-16.0); LYMPHOCYTES # (AUTO) 1.8 (1.0-3.2); LYMPHOCYTES % 24.9 % (18.0-39.1); MEAN CORPUSCULAR HEMOGLOBIN 21.5 pg (28-32); MEAN CORPUSCULAR HGB CONC 28.8 g/dL (31-35); MEAN CORPUSCULAR VOLUME 74.8 fL (81-99); MONOCYTES # (AUTO) 0.4 (0.2-0.8); MONOCYTES % 4.8 % (4.4-11.3); NEUTROPHILS # (AUTO) 4.9 (2.1-6.9); NEUTROPHILS % 67.1 % (38.7-80.0); PLATELET COUNT 443 x10e3/uL (140-360); RED BLOOD COUNT 4.69 x10e6/uL (3.6-5.1); RED CELL DISTRIBUTION WIDTH 17.4 % (11.7-14.4)
[2018-05-16 19:47] LABS: INR 0.91; PROTHROMBIN TIME 13.1 seconds (11.9-14.5)
[2018-05-16 19:54] LABS: ALANINE AMINOTRANSFERASE 23 IU/L (0-55); ALBUMIN 3.2 g/dL (3.5-5.0); ALBUMIN/GLOBULIN RATIO 0.7 (0.8-2.0); ALKALINE PHOSPHATASE 153 IU/L (40-150); ANION GAP 15.8 mmol/L (8-16); BLOOD UREA NITROGEN 15 mg/dL (7-26); BUN/CREATININE RATIO 19 (6-25); CALCIUM 8.2 mg/dL (8.4-10.2); CARBON DIOXIDE 22 mmol/L (22-29); CHLORIDE 107 mmol/L (98-107); CREATINE KINASE 80 IU/L (29-168); CREATININE, SERUM 0.79 mg/dL (0.57-1.11); EST GLOMERULAR FILTRATION RATE > 60 ML/MIN (60-); GLUCOSE 90 mg/dL (74-118); POTASSIUM 3.8 mmol/L (3.5-5.1); SODIUM 141 mmol/L (136-145)
--- NOTE | 2018-05-16 21:00 | Diagnostic Imaging Report ---
EXAM: CT CHEST W INDICATION: Midsternal/left-sided chest pain COMPARISON: None TECHNIQUE: Multidetector CT scanning of the chest was performed. Coronal and sagittal multiplanar reformations were obtained. Dose modulation, iterative reconstruction, and/or weight based adjustment of the mA/kV was utilized to reduce the radiation dose to as low as reasonably achievable. PE protocol performed. IV Contrast: 100 cc Isovue-370 CTDIvol has been reviewed. It is below the limits set by the Radiation Protocol Committee (RPC). FINDINGS: LUNGS AND AIRWAYS: The trachea and major bronchi are unremarkable. No consolidations or edema. PLEURA: No effusions or pneumothorax. HEART, MEDIASTINUM, VESSELS: Normal. No evidence of a pulmonary embolism. UPPER ABDOMEN: Normal MUSCULOSKELETAL: No acute findings. IMPRESSION: No evidence of a pulmonary embolism. Signed by: Dr. Stephanie Royal M.D. on 05/16/2018 8:57 PM
[2018-05-16] MEDS ORDERED: SODIUM CHLORIDE 0.9% 50ML 50 ML ONE (21:27)
[2018-05-16] MEDS ORDERED: IOPAMIDOL 370 MG/ML 200 ML INFUS..BTL INJ ONE (21:27)
[2018-05-16 21:48] VITALS: BP 112/76
== END 2018-05-16 21:55 | disposition home or self-care (01) ==
LOC: ER 18:05
DX: R07.89 Other chest pain (principal); R11.0 Nausea; I82.611 Acute embolism and thrombosis of superficial veins of right upper extremity; R19.7 Diarrhea, unspecified; F17.210 Nicotine dependence, cigarettes, uncomplicated
CPT/HCPCS: 36415; 71046; 71260; 80053; 81025; 82550; 82553; 84484; 85025; 85610; 93005; 93971; 99284; Q9967